=== PATIENT | female | born 1960 | race Caucasian/White ===

== ENCOUNTER 2022-02-18 15:31 | Inpatient (IN) | payer BC, MEDICAID ==
[2022-02-18] MEDS ORDERED: SODIUM CHLORIDE 0.9% 1,000 ML IV STA ×2 (16:25→20:42)
[2022-02-18] MEDS ORDERED: ACETAMINOPHEN TAB 500 MG TAB PO STA (16:25)
[2022-02-18] MEDS ORDERED: FAMOTIDINE 20 MG/2 ML VIAL IV STA (16:38)
--- NOTE | 2022-02-18 16:55 | ED ---
Abdominal Pain HPI - General Chief Complaint: Abdominal Pain Stated Complaint: near syncope Time Seen by Provider: 02/18/22 16:07 Source: patient, family, RN notes reviewed Mode of arrival: ambulatory Limitations: no limitations - History of Present Illness Initial Comments: This is a 61-year-old female who presents to the emergency department for abdomi nal pain. Patient states that over the last couple of weeks she has had these intermittent attacks of epigastric abdominal pain that occur with either left or right shoulder pain. She believes that she may have gallstones. She has a family history of gallstones in her mother and sister. When she was at her mother's house today she had another episode. She was curled up on the floor in pain and also felt very cold. Additionally, she had nausea and vomiting and felt like she may pass out. She currently feels better in terms of the pain and nausea/vomiting, however she does continue to feel cold and is visibly shivering in the room. She has never had an ultrasound of her gallbladder or otherwise been worked up for gallstones. Additionally, she reports a cough that began yesterday and has noticed a minor increase in shortness of breath with exertion over the last couple of weeks. Denies any fevers, sore throat, chest pain, palpitations, diarrhea, back pain, or headaches. MD Complaint: abdominal pain Onset/Timin -: week(s) Location: epigastric - Related Data Home Medications Medication Instructions Recorded Confirmed Acetaminophen/Diphenhydramine 1 tab PO HS PRN 02/18/22 02/18/22 [Tylenol PM 500-25mg] Multivitamins, Thera [Multivitamin 1 tab PO DAILY 02/18/22 02/18/22 (formulary)] Allergies Allergy/AdvReac Type Severity Reaction Status Date / Time No Known Allergies Allergy Verified 02/18/22 16:57 Review of Systems ROS Statement: Those systems with pertinent positive or pertinent negative responses have been documented in the HPI. ROS Other: All systems not noted in ROS Statement are negative. Past Medical History Past Medical History: No Reported History History of Any Multi-Drug Resistant Organisms: None Reported Past Surgical History: Tonsillectomy Past Psychological History: No Psychological Hx Reported Smoking Status: Never smoker Past Alcohol Use History: None Reported Past Drug Use History: None Reported General Exam Limitations: no limitations General appearance: alert, in no apparent distress Head exam: Present: atraumatic, normocephalic, normal inspection Respiratory exam: Present: normal lung sounds bilaterally. Absent: respiratory distress, wheezes, rales, rhonchi, stridor Cardiovascular Exam: Present: regular rate, normal rhythm, normal heart sounds. Absent: systolic murmur, diastolic murmur, rubs, gallop, clicks GI/Abdominal exam: Present: soft, tenderness (Epigastric), normal bowel sounds. Absent: distended, guarding, rebound, rigid Neurological exam: Present: alert, oriented X3, CN II-XII intact Psychiatric exam: Present: normal affect, normal mood Skin exam: Present: warm, dry, intact, normal color. Absent: rash Course Vital Signs 02/18/22 02/18/22 02/18/22 15:46 17:17 19:00 Temperature 99.0 F Pulse Rate 105 H 98 92 Respiratory 20 16 16 Rate Blood Pressure 140/87 129/91 106/65 O2 Sat by Pulse 100 98 97 Oximetry 02/18/22 19:04 Temperature 98.4 F Pulse Rate Respiratory Rate Blood Pressure O2 Sat by Pulse Oximetry Medical Decision Making - Medical Decision Making This is a 61-year-old female who presents to the emergency department for epigastric pain. Lab work revealed an elevated white blood cell count of 17.2. Ultrasound of the gallbladder obtained, revealing no evidence of gallbladder issues. Given the elevated white blood cell count a CT of the abdomen and pelvis as well as chest x-ray were obtained. This revealed a left lower lobe infiltrate and atelectasis with pleural effusion. She also has a small pericardial effusion. It is unclear if these have been the cause of all of the patient's symptoms over the last couple of weeks. Patient will be started on the pneumonia protocol with blood and sputum cultures. In the event her gallbladder is contributing to this, she will likely need a HIDA scan for further evaluation. Patient admitted for pneumonia and pericardial effusion. This case was discussed in detail with the attending ED physician. Presentation, findings, and treatment plan discussed in detail as well. - Lab Data Result diagrams: 02/18/22 16:56 02/18/22 16:56 Lab Results 02/18/22 02/18/22 02/18/22 Range/Units 16:56 16:56 16:56 WBC 17.2 H (3.8-10.6) k/uL RBC 3.61 L (3.80-5.40) m/uL Hgb 11.3 L (11.4-16.0) gm/dL Hct 34.6 (34.0-46.0) % MCV 96.0 (80.0-100.0) fL MCH 31.4 (25.0-35.0) pg MCHC 32.7 (31.0-37.0) g/dL RDW 11.3 L (11.5-15.5) % Plt Count 502 H (150-450) k/uL MPV 6.9 Neutrophils % 92 % Lymphocytes % 3 % Monocytes % 5 % Eosinophils % 0 % Basophils % 0 % Neutrophils # 15.7 H (1.3-7.7) k/uL Lymphocytes # 0.5 L (1.0-4.8) k/uL Monocytes # 0.8 (0-1.0) k/uL Eosinophils # 0.0 (0-0.7) k/uL Basophils # 0.1 (0-0.2) k/uL ESR (0-20) mm/hr Sodium 131 L (137-145) mmol/L Potassium 4.2 (3.5-5.1) mmol/L Chloride 95 L (98-107) mmol/L Carbon Dioxide 27 (22-30) mmol/L Anion Gap 9 mmol/L BUN 10 (7-17) mg/dL Creatinine 0.72 (0.52-1.04) mg/dL Est GFR (CKD-EPI)AfAm >90 (>60 ml/min/1.73 sqM) Est GFR (CKD-EPI)NonAf >90 (>60 ml/min/1.73 sqM) Glucose 135 H (74-99) mg/dL Calcium 8.5 (8.4-10.2) mg/dL Total Bilirubin 0.5 (0.2-1.3) mg/dL AST 33 (14-36) U/L ALT 55 H (4-34) U/L Alkaline Phosphatase 127 H (38-126) U/L Troponin I (0.000-0.034) ng/mL Total Protein 6.5 (6.3-8.2) g/dL Albumin 3.8 (3.5-5.0) g/dL Amylase 49 (30-110) U/L Lipase 72 (23-300) U/L Urine Color Light Yellow Urine Appearance Clear (Clear) Urine pH 6.0 (5.0-8.0) Ur Specific [place] 1.007 (1.001-1.035) Urine Protein Negative (Negative) Urine Glucose (UA) Negative (Negative) Urine Ketones Negative (Negative) Urine Blood Negative (Negative) Urine Nitrite Negative (Negative) Urine Bilirubin Negative (Negative) Urine Urobilinogen <2.0 (<2.0) mg/dL Ur Leukocyte Esterase Negative (Negative) Coronavirus (PCR) (Not Detectd) Influenza Type A RNA (Not Detectd) Influenza Type B (PCR) (Not Detectd) 02/18/22 02/18/22 02/18/22 Range/Units 16:56 16:56 16:56 WBC (3.8-10.6) k/uL RBC (3.80-5.40) m/uL Hgb (11.4-16.0) gm/dL Hct (34.0-46.0) % MCV (80.0-100.0) fL MCH (25.0-35.0) pg MCHC (31.0-37.0) g/dL RDW (11.5-15.5) % Plt Count (150-450) k/uL MPV Neutrophils % % Lymphocytes % % Monocytes % % Eosinophils % % Basophils % % Neutrophils # (1.3-7.7) k/uL Lymphocytes # (1.0-4.8) k/uL Monocytes # (0-1.0) k/uL Eosinophils # (0-0.7) k/uL Basophils # (0-0.2) k/uL ESR (0-20) mm/hr Sodium (137-145) mmol/L Potassium (3.5-5.1) mmol/L Chloride (98-107) mmol/L Carbon Dioxide (22-30) mmol/L Anion Gap mmol/L BUN (7-17) mg/dL Creatinine (0.52-1.04) mg/dL Est GFR (CKD-EPI)AfAm (>60 ml/min/1.73 sqM) Est GFR (CKD-EPI)NonAf (>60 ml/min/1.73 sqM) Glucose (74-99) mg/dL Calcium (8.4-10.2) mg/dL Total Bilirubin (0.2-1.3) mg/dL AST (14-36) U/L ALT (4-34) U/L Alkaline Phosphatase (38-126) U/L Troponin I <0.012 (0.000-0.034) ng/mL Total Protein (6.3-8.2) g/dL Albumin (3.5-5.0) g/dL Amylase (30-110) U/L Lipase (23-300) U/L Urine Color Urine Appearance (Clear) Urine pH (5.0-8.0) Ur Specific [place] (1.001-1.035) Urine Protein (Negative) Urine Glucose (UA) (Negative) Urine Ketones (Negative) Urine Blood (Negative) Urine Nitrite (Negative) Urine Bilirubin (Negative) Urine Urobilinogen (<2.0) mg/dL Ur Leukocyte Esterase (Negative) Coronavirus (PCR) Not Detected (Not Detectd) Influenza Type A RNA Not Detected (Not Detectd) Influenza Type B (PCR) Not Detected (Not Detectd) 02/18/22 Range/Units 22:21 WBC (3.8-10.6) k/uL RBC (3.80-5.40) m/uL Hgb (11.4-16.0) gm/dL Hct (34.0-46.0) % MCV (80.0-100.0) fL MCH (25.0-35.0) pg MCHC (31.0-37.0) g/dL RDW (11.5-15.5) % Plt Count (150-450) k/uL MPV Neutrophils % % Lymphocytes % % Monocytes % % Eosinophils % % Basophils % % Neutrophils # (1.3-7.7) k/uL Lymphocytes # (1.0-4.8) k/uL Monocytes # (0-1.0) k/uL Eosinophils # (0-0.7) k/uL Basophils # (0-0.2) k/uL ESR 104 H (0-20) mm/hr Sodium (137-145) mmol/L Potassium (3.5-5.1) mmol/L Chloride (98-107) mmol/L Carbon Dioxide (22-30) mmol/L Anion Gap mmol/L BUN (7-17) mg/dL Creatinine (0.52-1.04) mg/dL Est GFR (CKD-EPI)AfAm (>60 ml/min/1.73 sqM) Est GFR (CKD-EPI)NonAf (>60 ml/min/1.73 sqM) Glucose (74-99) mg/dL Calcium (8.4-10.2) mg/dL Total Bilirubin (0.2-1.3) mg/dL AST (14-36) U/L ALT (4-34) U/L Alkaline Phosphatase (38-126) U/L Troponin I (0.000-0.034) ng/mL Total Protein (6.3-8.2) g/dL Albumin (3.5-5.0) g/dL Amylase (30-110) U/L Lipase (23-300) U/L Urine Color Urine Appearance (Clear) Urine pH (5.0-8.0) Ur Specific [place] (1.001-1.035) Urine Protein (Negative) Urine Glucose (UA) (Negative) Urine Ketones (Negative) Urine Blood (Negative) Urine Nitrite (Negative) Urine Bilirubin (Negative) Urine Urobilinogen (<2.0) mg/dL Ur Leukocyte Esterase (Negative) Coronavirus (PCR) (Not Detectd) Influenza Type A RNA (Not Detectd) Influenza Type B (PCR) (Not Detectd) - EKG Data EKG Comments: Sinus tachycardia. Possible left atrial enlargement. Ventricular rate 104 bpm, HI interval 137 ms, QRS duration 96 ms, QTC 384 ms. - Radiology Data Radiology results: report reviewed, image reviewed Disposition Clinical Impression: Pneumonia, Pericardial effusion Disposition: ADMITTED IP TO THIS [facility] Referrals: None,Stated [Primary Care Provider] - 1-2 days
[2022-02-18 17:21] LABS: ALT 55 U/L (4-34); AST 33 U/L (14-36); African American GFR (CKD) >90 (>60 ml/min/1.73 sqM); Albumin 3.8 g/dL (3.5-5.0); Alkaline Phosphatase 127 U/L (38-126); Amylase 49 U/L (30-110); Anion Gap 9 mmol/L; Blood Urea Nitrogen 10 mg/dL (7-17); Calcium 8.5 mg/dL (8.4-10.2); Carbon Dioxide 27 mmol/L (22-30); Chloride 95 mmol/L (98-107); Glucose 135 mg/dL (74-99); Lipase 72 U/L (23-300); Non-African American GFR(CKD) >90 (>60 ml/min/1.73 sqM); Potassium 4.2 mmol/L (3.5-5.1); Sodium 131 mmol/L (137-145); Total Bilirubin 0.5 mg/dL (0.2-1.3); Total Protein 6.5 g/dL (6.3-8.2)
[2022-02-18 17:27] LABS: Basophils # (A) 0.1 k/uL (0-0.2); Basophils % (A) 0 %; Eosinophils % (A) 0 %; HCT 34.6 % (34.0-46.0); HGB 11.3 gm/dL (11.4-16.0); Lymphocytes # (A) 0.5 k/uL (1.0-4.8); Lymphocytes % (A) 3 %; MCH 31.4 pg (25.0-35.0); MCHC 32.7 g/dL (31.0-37.0); Mean Platelet Volume 6.9; Monocytes # (A) 0.8 k/uL (0-1.0); Monocytes % (A) 5 %; Neutrophils # (A) 15.7 k/uL (1.3-7.7); Neutrophils % (A) 92 %; Platelet Count 502 k/uL (150-450); RBC 3.61 m/uL (3.80-5.40); RDW 11.3 % (11.5-15.5); WBC 17.2 k/uL (3.8-10.6)
[2022-02-18 18:48] LABS: Appearance,Urine Clear (Clear); Bilirubin,Urine Negative (Negative); Blood,Urine Negative (Negative); Color,Urine Light Yellow; Glucose,Urine (UA) Negative (Negative); Ketones,Urine Negative (Negative); Leukocyte Esterase,Urine Negative (Negative); Nitrite,Urine Negative (Negative); Protein,Urine Negative (Negative); Specific Gravity,Urine 1.007 (1.001-1.035); Urobilinogen,Urine <2.0 mg/dL (<2.0)
--- NOTE | 2022-02-18 19:28 | US ---
EXAMINATION TYPE: US gallbladder DATE OF EXAM: 02/18/2022 COMPARISON: NONE CLINICAL HISTORY: Epigastric and RUQ pain. Pain EXAM MEASUREMENTS: Liver Length: 14.7 cm Gallbladder Wall: 0.18 cm CBD: 0.24 cm Right Kidney: 11.5 x 3.7 x 5.0 cm Pancreas: Appears wnl Liver: Multiple hyperechoic foci seen; largest seen in the right lobe measuring 2.7 x 2.2 x 2.4 cm Gallbladder: Appears wnl Evidence for sonographic Knight's sign: no CBD: wnl Right Kidney: No hydronephrosis or masses seen IMPRESSION: No gallstones or dilated ducts. Multiple sharply marginated liver lesions consistent with hemangiomas .
[2022-02-18] MEDS ORDERED: KETOROLAC 15 MG/ML 1 ML VIAL IVP STA (19:57)
--- NOTE | 2022-02-18 20:40 | XR ---
EXAMINATION TYPE: XR chest 2V DATE OF EXAM: 02/18/2022 COMPARISON: NONE HISTORY: Cough TECHNIQUE: 2 views FINDINGS: There is blunting left costophrenic angle. Heart size is normal. There are no hilar masses. Mediastinum is normal. There are chest leads. Bony thorax is intact. IMPRESSION: Left pleural effusion. Small right pleural effusion. No heart failure seen.
[2022-02-18] MEDS ORDERED: METOCLOPRAMIDE 5 MG/ML 2 ML VIAL IVP STA (20:42)
--- NOTE | 2022-02-18 20:49 | CT ---
EXAMINATION TYPE: CT abdomen pelvis w con DATE OF EXAM: 02/18/2022 COMPARISON: None HISTORY: epigastric pain CT DLP: 608.8 mGycm Automated exposure control for dose reduction was used. CONTRAST: Performed with IV Contrast, patient injected with 100ml mL of Isovue 300. There is small pericardial effusion. There is left pleural effusion with left lower lobe infiltrate a nd atelectasis. Gallbladder is intact. Spleen appears normal. There is no sign of pancreatic mass. The bile ducts ar e not dilated. There is oval-shaped 2.7 x 1.5 cm hypodensity in the right lobe of the liver with some nodular periph eral enhancement related to hemangioma. There is a second similar 2 x 1 cm focus in the lateral right lobe of the liver. There is no adrenal mass. Kidneys have normal size and contour. No hydronephrosis. Ureters are not di lated. There is no retroperitoneal adenopathy. Bladder distends smoothly. There is no inguinal hernia . No free fluid in the pelvis. No pelvic mass. Uterus appears anteverted. Cecum is low in the pelvis. Appendix not seen. No significant appendix. There is no mesenteric edema. No ascites or free air. No sign of a bowel obstruction. The lumbar vert ebrae have normal alignment. No compression fracture. Posterior elements are intact. Facet joints are intact. Hip joints are intact. IMPRESSION: Left lower lobe infiltrate and atelectasis with pleural effusion and pericardial effusion. No acute abnormality within the abdomen and pelvis. Hepatic hemangioma noted.
[2022-02-18] MEDS ORDERED: AZITHROMYCIN 500 MG in SODIUM CHLORIDE 0.9% 250 ML IVPB STA (21:46)
[2022-02-18] MEDS ORDERED: PNEUMONIA PROTOCOL UTILIZED 1 EACH MISC PO PRN (21:46)
[2022-02-18] MEDS ORDERED: ONDANSETRON 4 MG/2 ML VIAL IVP PRN (23:04)
[2022-02-18] MEDS ORDERED: NALOXONE 0.4 MG/ML 1 ML VIAL IV PRN (23:04)
[2022-02-18] MEDS ORDERED: oxyCODONE-APAP 5-325MG 1 EACH TAB PO PRN (23:04)
--- NOTE | 2022-02-19 02:41 | P.HPIM ---
History of Present Illness H&P Date: 02/19/22 The patient is a 61-year-old female with no known PMH who presents to the emergency room with complaints of abdominal pain and cough. Patient reports that over the past 1-1/2 weeks, she has experienced 2-3 episodes of sudden onset diaphoresis, abdominal discomfort, shaking chills, and eructation followed by a loose bowel movement. She reports that the episodes last for a few minutes at a time, without chest discomfort or shortness of breath. She also reports experiencing left shoulder discomfort occasionally over the past 2 weeks. Also reports persistent nonproductive cough over the past 1-2 weeks. She believed that she may have gallstones as multiple family members of hers have had their gallbladders removed. Denies ever being worked up for gallstones and has not seen a physician in over a decade. Reports that her most recent episode was earlier today which prompted her to come to the emergency room. Gallbladder ultrasound in the emergency room was unremarkable except multiple liver hemangiomas. Chest x-ray revealed left-sided pleural effusion with small right pleural effusion. CT abdomen and pelvis revealed left lower lobe infiltrate and atelectasis with pleural effusion and a small pericardial effusion. EKG was sinus tachycardia at 104 bpm with T-wave flattening in inferior leads as well as poor R-wave progression. Laboratory evaluation revealed leukocytosis of 17.2, hemoglobin 11.3, platelets 502, ESR 104, lactic acid 0.9, troponin less than 0.012, and CRP 13.1. Review of systems: Pertinent positives and negatives as discussed in HPI, a complete review of s ystems was performed and all other systems are negative. Physical examination: General: non toxic, no distress, appears at stated age, normal weight Derm: no unusual rashes/lesions, warm Head: atraumatic, normocephalic, symmetric Eyes: EOMI, no lid lag, anicteric sclera, pupils equal round reactive to light ENT: Nose and ears atraumatic Neck: No cervical lymphadenopathy, trachea midline, supple Mouth: no lip lesion, mucus membranes moist Cardiovascular: S1S2 reg, no murmur, positive dorsalis pedis pulse bilateral, no edema Lungs: CTA bilateral, no rhonchi, no rales, no accessory muscle use Abdominal: soft, nontender to palpation, no guarding Ext: muscle strength 5 out of 5 in all 4 extremities grossly, no gross muscle atrophy, no contractures, Neuro: CN II-XI grossly intact, no gross focal neuro deficits Psych: Alert, oriented, appropriate affect Assessment/plan Sepsis suspected secondary to community acquired pneumonia -Continue with azithromycin and ceftriaxone -IV fluids -Follow-up pro-calcitonin levels -Follow up blood and sputum cultures DVT prophylaxis -Heparin subq The patient is admitted with an anticipated greater than 2 midnight stay for evaluation of sepsis CODE STATUS: Full Code Discussed with: Patient Anticipated discharge date: 02/[address]: Home Past Medical History Past Medical History: No Reported History History of Any Multi-Drug Resistant Organisms: None Reported Past Surgical History: Tonsillectomy Past Anesthesia/Blood Transfusion Reactions: No Reported Reaction Past Psychological History: No Psychological Hx Reported Smoking Status: Never smoker Past Alcohol Use History: None Reported Past Drug Use History: None Reported - Past Family History Mother Family Medical History: Hypertension Medications and Allergies Home Medications Medication Instructions Recorded Confirmed Type Acetaminophen/Diphenhydramine 1 tab PO HS PRN 02/18/22 02/18/22 History [Tylenol PM 500-25mg] Multivitamins, Thera [Multivitamin 1 tab PO DAILY 02/18/22 02/18/22 History (formulary)] Allergies Allergy/AdvReac Type Severity Reaction Status Date / Time No Known Allergies Allergy Verified 02/18/22 16:57 Physical Exam Vitals: Vital Signs Temp Pulse Pulse Resp BP BP Pulse Ox 02/19/22 00:30 98.4 F 89 16 100/65 100 02/19/22 00:00 86 16 96/64 97 02/18/22 23:26 98.4 F 89 16 100/65 100 02/18/22 21:46 100 02/18/22 19:04 98.4 F 02/18/22 19:00 92 16 106/65 97 02/18/22 17:17 98 16 129/91 98 02/18/22 15:46 99.0 F 105 H 20 140/87 100 Intake and Output 02/18/22 02/18/22 02/19/22 14:59 22:59 06:59 Other: Weight 56.699 kg 56.699 kg Results CBC & Chem 7: 02/18/22 16:56 02/18/22 16:56 Labs: Abnormal Lab Results - Last 24 Hours (Table) 06/05/0402/18/22 02/18/22 Range/Units 16:56 16:56 21:48 WBC 17.2 H (3.8-10.6) k/uL RBC 3.61 L (3.80-5.40) m/uL Hgb 11.3 L (11.4-16.0) gm/dL RDW 11.3 L (11.5-15.5) % Plt Count 502 H (150-450) k/uL Neutrophils # 15.7 H (1.3-7.7) k/uL Lymphocytes # 0.5 L (1.0-4.8) k/uL ESR (0-20) mm/hr Sodium 131 L (137-145) mmol/L Chloride 95 L (98-107) mmol/L Glucose 135 H (74-99) mg/dL ALT 55 H (4-34) U/L Alkaline Phosphatase 127 H (38-126) U/L C-Reactive Protein 13.1 H (<1.0) mg/dL 02/18/22 Range/Units 22:21 WBC (3.8-10.6) k/uL RBC (3.80-5.40) m/uL Hgb (11.4-16.0) gm/dL RDW (11.5-15.5) % Plt Count (150-450) k/uL Neutrophils # (1.3-7.7) k/uL Lymphocytes # (1.0-4.8) k/uL ESR 104 H (0-20) mm/hr Sodium (137-145) mmol/L Chloride (98-107) mmol/L Glucose (74-99) mg/dL ALT (4-34) U/L Alkaline Phosphatase (38-126) U/L C-Reactive Protein (<1.0) mg/dL Thrombosis Risk Factor Assmnt - Choose All That Apply Any of the Below Risk Factors Present?: No
[2022-02-19] MEDS: SODIUM CHLORIDE 0.9% 1,000 ML IV SCH ×2 (02:55→19:51)
[2022-02-19 06:57] LABS: Basophils # (A) 0.1 k/uL (0-0.2); Basophils % (A) 0 %; Eosinophils # (A) 0.1 k/uL (0-0.7); Eosinophils % (A) 1 %; HCT 32.5 % (34.0-46.0); HGB 10.4 gm/dL (11.4-16.0); Lymphocytes # (A) 1.3 k/uL (1.0-4.8); Lymphocytes % (A) 11 %; MCH 31.1 pg (25.0-35.0); MCHC 31.9 g/dL (31.0-37.0); MCV 97.6 fL (80.0-100.0); Mean Platelet Volume 6.9; Monocytes # (A) 0.8 k/uL (0-1.0); Monocytes % (A) 6 %; Neutrophils # (A) 9.6 k/uL (1.3-7.7); Neutrophils % (A) 80 %; Platelet Count 456 k/uL (150-450); RBC 3.33 m/uL (3.80-5.40); RDW 11.4 % (11.5-15.5)
[2022-02-19 07:14] LABS: ALT 46 U/L (4-34); AST 27 U/L (14-36); African American GFR (CKD) >90 (>60 ml/min/1.73 sqM); Albumin 3.3 g/dL (3.5-5.0); Alkaline Phosphatase 116 U/L (38-126); Anion Gap 7 mmol/L; Blood Urea Nitrogen 6 mg/dL (7-17); Calcium 8.3 mg/dL (8.4-10.2); Carbon Dioxide 25 mmol/L (22-30); Chloride 103 mmol/L (98-107); Glucose 108 mg/dL (74-99); Non-African American GFR(CKD) >90 (>60 ml/min/1.73 sqM); Sodium 135 mmol/L (137-145); Total Bilirubin 0.4 mg/dL (0.2-1.3)
[2022-02-19] MEDS: HEPARIN SODIUM,PORCINE/PF 5,000 UNIT/0.5 ML SYRINGE SQ SCH ×3 (07:18→23:46)
[2022-02-19] MEDS: ACETAMINOPHEN TAB 325 MG TAB PO PRN ×2 (10:52→19:47)
[2022-02-19] MEDS: BENZOCAINE/MENTHOL LOZENG 1 EACH LOZENGE MUCOUS MEM PRN ×2 (15:40→20:38)
[2022-02-19] MEDS: AZITHROMYCIN 500 MG in SODIUM CHLORIDE 0.9% 250 ML IVPB SCH (20:39)
[2022-02-20] MEDS: ACETAMINOPHEN TAB 325 MG TAB PO PRN ×2 (02:12→08:25)
[2022-02-20] MEDS: BENZOCAINE/MENTHOL LOZENG 1 EACH LOZENGE MUCOUS MEM PRN ×2 (02:16→08:25)
[2022-02-20] MEDS: SODIUM CHLORIDE 0.9% 1,000 ML IV SCH ×3 (02:49→21:13)
[2022-02-20] MEDS: HEPARIN SODIUM,PORCINE/PF 5,000 UNIT/0.5 ML SYRINGE SQ SCH ×3 (07:36→23:44)
--- NOTE | 2022-02-20 13:55 | P.CNPUL ---
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 The patient was having also some abdominal discomfort, shaking chills, loose bowel movements and she end up coming into the hospital for further care. The chest x-ray showed a left lower lobe consolidation and small left-sided pleural effusion. CAT scan of the abdomen and pelvis was also done that showed left lower lobe atelectasis/infiltrate with a pleural effusion and small pericardial effusion. Based on that, the patient was diagnosed having a community-acquired pneumonia. The patient was hospitalized and currently the patient on IV antibiotics. The sedimentation rate is at 104. CRP is at 13.1. COVID 19 testing was negative. Influenza screen was negative. The patient was started on a combination of Rocephin and Zithromax. The lactic acid level was at 0.9. Troponin was at 0.01 and a CRP level was at 13. The patient was sent, was at 17.2 with a hemoglobin of 11.3. No previous episodes of pneumonias. No lung history in terms of lung disease. No chronic illnesses. No aspiration. No trauma to the chest. No DVTs or pulmonary embolism. Review of Systems Constitutional: Reports fatigue, Reports sweats Eyes: denies as per HPI, denies blurred vision, denies bulging eye, denies decreased vision, denies diplopia, denies discharge, denies dry eye, denies irritation, denies itching, denies pain, denies photophobia, denies loss of peripheral vision, denies loss of vision, denies tunnel vision/blind spots Ears: deny: decreased hearing, ear discharge, earache, tinnitus Ears, nose, mouth and throat: Reports as per HPI Breasts: absent: as per HPI, change in shape, gynecomastia, masses, nipple discharge, pain, skin changes, swelling Cardiovascular: Reports decreased exercise tolerance, Reports dyspnea on exertion Respiratory: Reports cough Gastrointestinal: Reports diarrhea, Reports loss of appetite Genitourinary: Reports as per HPI Menstruation: Reports as per HPI Musculoskeletal: Reports as per HPI Musculoskeletal: absent: ankle pain, ankle stiffness, ankle swelling Integumentary: Reports as per HPI Neurological: Reports as per HPI Endocrine: Reports as per HPI Hematologic/Lymphatic: Reports as per HPI Allergic/Immunologic: Reports as per HPI Past Medical History Past Medical History: No Reported History History of Any Multi-Drug Resistant Organisms: None Reported Past Surgical History: Tonsillectomy Past Anesthesia/Blood Transfusion Reactions: No Reported Reaction Past Psychological History: No Psychological Hx Reported Smoking Status: Never smoker Past Alcohol Use History: None Reported Past Drug Use History: None Reported - Past Family History Mother Family Medical History: Hypertension Medications and Allergies Home Medications Medication Instructions Recorded Confirmed Type Acetaminophen/Diphenhydramine 1 tab PO HS PRN 02/18/22 02/18/22 History [Tylenol PM 500-25mg] Multivitamins, Thera [Multivitamin 1 tab PO DAILY 02/18/22 02/18/22 History (formulary)] Allergies Allergy/AdvReac Type Severity Reaction Status Date / Time No Known Allergies Allergy Verified 02/18/22 16:57 Physical Exam Vitals: Vital Signs Temp Pulse Resp BP Pulse Ox 02/20/22 08:40 19 02/20/22 08:00 99.0 F 89 16 101/61 97 02/20/22 02:24 99.6 F 91 19 100/58 95 02/20/22 00:17 97 02/19/22 21:10 99.4 F 02/19/22 19:52 101.6 F H 100 20 113/78 97 02/19/22 15:08 98.4 F 87 17 109/68 98 Intake and Output 02/19/22 02/20/22 02/20/22 22:59 06:59 14:59 Intake Total 240 Output Total 3 Balance 237 Intake: Oral 240 Output: Urine 3 Other: Voiding Method Toilet General: non toxic, no distress, appears at stated age, normal weight , currently on room air oxygen. Quite nervous due to her underlyying pneumonia. Derm: no unusual rashes/lesions, warm Head: atraumatic, normocephalic, symmetric Eyes: EOMI, no lid lag, anicteric sclera, pupils equal round reactive to light ENT: Nose and ears atraumatic Neck: No cervical lymphadenopathy, trachea midline, supple Mouth: no lip lesion, mucus membranes moist Cardiovascular: S1S2 reg, no murmur, positive dorsalis pedis pulse bilateral, no edema Lungs the patient has diminished breath on the left lung base along with some dullness to percussion and some limited track of the left lung area. Abdominal: soft, nontender to palpation, no guarding Ext: muscle strength 5 out of 5 in all 4 extremities grossly, no gross muscle at rophy, no contractures, Neuro: CN II-XI grossly intact, no gross focal neuro deficits Psych: Alert, oriented, appropriate affect Results - Laboratory Findings CBC and BMP: 02/19/22 03:59 02/19/22 03:50 Abnormal lab findings: Abnormal Labs 02/18/22 02/18/22 02/18/22 16:56 16:56 21:48 WBC 17.2 H RBC 3.61 L Hgb 11.3 L Hct RDW 11.3 L Plt Count 502 H Neutrophils # 15.7 H Lymphocytes # 0.5 L ESR Sodium 131 L Chloride 95 L BUN Glucose 135 H Calcium ALT 55 H Alkaline Phosphatase 127 H C-Reactive Protein 13.1 H Total Protein Albumin Procalcitonin 02/18/22 02/19/22 02/19/22 22:21 03:50 03:50 WBC RBC Hgb Hct RDW Plt Count Neutrophils # Lymphocytes # ESR 104 H Sodium 135 L Chloride BUN 6 L Glucose 108 H Calcium 8.3 L ALT 46 H Alkaline Phosphatase C-Reactive Protein Total Protein 6.0 L Albumin 3.3 L Procalcitonin 0.20 H 02/19/22 03:59 WBC 12.0 H RBC 3.33 L Hgb 10.4 L Hct 32.5 L RDW 11.4 L Plt Count 456 H Neutrophils # 9.6 H Lymphocytes # ESR Sodium Chloride BUN Glucose Calcium ALT Alkaline Phosphatase C-Reactive Protein Total Protein Albumin Procalcitonin - Diagnostic Findings Chest x-ray: image reviewed Assessment and Plan Plan: community-acquired left lower lobe pneumonia with a small parapneumonic effusion dyspnea cough secondary to above Pleuritic left-sided chest pain secondary to above extrapulmonary manifestation of pneumonia including diarrhea , improved Mild leukocytosis Plan Fully agree on the current treatment plan. continue Rocephin and Zithromax for now. Repeat chesst x-ray in the morning Obtain sputum and blood cultures if possible For calcitonin level is mildly elevated Repeat chest x-ray with next 24 hours and evaluate for development of any left- sided pleural effusion /parapneumonic. There is somme parapneumonic pleural effusion at this point in time. The amount is small and is not amenable for thoracentesis [place] for pain control Robitussin-DM for cough and congestion We'll continue to follow.
[2022-02-20 14:17] LABS: Basophils # (A) 0.1 k/uL (0-0.2); Basophils % (A) 0 %; Eosinophils # (A) 0.3 k/uL (0-0.7); Eosinophils % (A) 2 %; HCT 36.1 % (34.0-46.0); HGB 11.4 gm/dL (11.4-16.0); Lymphocytes # (A) 1.5 k/uL (1.0-4.8); Lymphocytes % (A) 9 %; MCH 31.1 pg (25.0-35.0); MCHC 31.6 g/dL (31.0-37.0); MCV 98.5 fL (80.0-100.0); Mean Platelet Volume 7.2; Monocytes # (A) 0.5 k/uL (0-1.0); Monocytes % (A) 3 %; Neutrophils # (A) 13.9 k/uL (1.3-7.7); Neutrophils % (A) 85 %; Platelet Count 508 k/uL (150-450); RBC 3.67 m/uL (3.80-5.40); RDW 11.5 % (11.5-15.5); WBC 16.4 k/uL (3.8-10.6)
[2022-02-20] MEDS: guaiFENesin-Coden 100-10MG/5ML 10 ML CUP PO PRN ×2 (14:21→21:22)
[2022-02-20] MEDS: HYDROcodone/APAP 5-325MG 1 EACH TAB PO PRN ×2 (14:21→21:22)
--- NOTE | 2022-02-20 14:24 | P.PN ---
Subjective Progress Note Date: 02/20/22 Patient has persistent cough, left-sided pleuritic chest pain. She had trouble sleeping last night due to cough, feels run down and weak today. Ongoing IV antibiotic therapy with ceftriaxone/azithromycin. Pulmonary consult today, appreciate recommendations. Patient will be monitored with repeat chest x-ray tomorrow to determine ongoing plan. Daily labs. Gen: awake, alert HEENT: normocephalic, atraumatic, good hearing acuity, moist mucous membranes Resp: good air exchange, breathing comfortably with no accessory muscle use, diminished breath sounds in the left base, otherwise clear CVS: good distal perfusion x 4, regular rate and rhythm, no murmurs GI: soft, NTTP, ND : no SPT, no CVAT, cobb catheter not present MSK: no pitting edema, no clubbing Neuro: non-focal, moving all extremities Psych: cooperative, euthymic mood Assessment/plan: Sepsis suspected secondary to community acquired pneumonia -Continue with azithromycin and ceftriaxone -IV fluids -Follow-up pro-calcitonin levels -Follow up blood and sputum cultures -Pulmonology consult, appreciate recommendations -Guaifenesin/codeine every 6 hours when necessary for cough -Repeat chest x-ray in the morning DVT prophylaxis -Heparin subq The patient is admitted with an anticipated greater than 2 midnight stay for evaluation of sepsis CODE STATUS: Full Code Discussed with: Patient Anticipated discharge date: 02/[address]: Home Objective - Vital Signs Vital signs: Vital Signs Temp 99.0 F 02/20/22 08:00 Pulse 89 02/20/22 08:00 Resp 19 02/20/22 08:40 BP 101/61 02/20/22 08:00 Pulse Ox 97 02/20/22 08:00 FiO2 Intake & Output 02/19/22 02/20/22 02/20/22 18:59 06:59 18:59 Intake Total 240 Output Total 3 Balance -3 240 Intake: Oral 240 Output: Urine 3 Other: Voiding Method Toilet - Labs CBC & Chem 7: 02/20/22 13:59 02/19/22 03:50 Labs: Abnormal Lab Results - Last 24 Hours (Table) 02/20/22 Range/Units 13:59 WBC 16.4 H (3.8-10.6) k/uL RBC 3.67 L (3.80-5.40) m/uL Plt Count 508 H (150-450) k/uL Neutrophils # 13.9 H (1.3-7.7) k/uL Microbiology - Last 24 Hours (Table) 02/19/22 04:37 Blood Culture - Preliminary Blood No Growth after 24 hours 02/19/22 03:50 Blood Culture - Preliminary Blood No Growth after 24 hours
[2022-02-20 14:34] LABS: African American GFR (CKD) >90 (>60 ml/min/1.73 sqM); Anion Gap 10 mmol/L; Blood Urea Nitrogen 8 mg/dL (7-17); Calcium 8.4 mg/dL (8.4-10.2); Carbon Dioxide 23 mmol/L (22-30); Chloride 102 mmol/L (98-107); Glucose 198 mg/dL (74-99); Magnesium 2.2 mg/dL (1.6-2.3); Non-African American GFR(CKD) >90 (>60 ml/min/1.73 sqM); Potassium 3.9 mmol/L (3.5-5.1); Sodium 135 mmol/L (137-145)
[2022-02-20 18:28] LABS: Glucose,Whole Blood 178 mg/dL (75-99)
--- NOTE | 2022-02-20 19:14 | XR ---
EXAMINATION TYPE: XR chest 1V portable DATE OF EXAM: 02/20/2022 COMPARISON: 02/18/2022 HISTORY: Short of breath TECHNIQUE: FINDINGS: There is blunting of the costophrenic angles and more on the left side. There is infiltrate left lung base. No definite heart failure. There are chest leads. Bony thorax is intact. IMPRESSION: There is increasing pleural effusion compared to recent exam. There is increasing infiltr ate left lower lobe compared to recent exam.
[2022-02-20] MEDS: AZITHROMYCIN 500 MG in SODIUM CHLORIDE 0.9% 250 ML IVPB SCH (22:18)
[2022-02-21] MEDS: SODIUM CHLORIDE 0.9% 1,000 ML IV SCH ×3 (01:27→17:49)
[2022-02-21] MEDS: ACETAMINOPHEN TAB 325 MG TAB PO PRN (06:03)
[2022-02-21] MEDS: guaiFENesin-Coden 100-10MG/5ML 10 ML CUP PO PRN (06:04)
--- NOTE | 2022-02-21 07:01 | XR ---
EXAMINATION TYPE: XR chest 2V DATE OF EXAM: 02/21/2022 COMPARISON: 02/20/2022 HISTORY: Shortness of breath TECHNIQUE: Frontal and lateral views of the chest are obtained. FINDINGS: There is a dense opacity obscuring the left hemidiaphragm consistent with a moderate left pleural effusion and possibly interstitial lung infiltrate or atelectasis. There is a small right pleural effusion which has increased slightly in the interval. There is no pneumothorax. The osseous structures are intact IMPRESSION: 1. Bilateral pleural effusions, left much larger than right. 2. Right effusion increasing compared to prior study. Left effusion essentially unchanged.
[2022-02-21] MEDS: HEPARIN SODIUM,PORCINE/PF 5,000 UNIT/0.5 ML SYRINGE SQ SCH ×3 (08:48→23:46)
[2022-02-21 08:50] LABS: Basophils # (A) 0.04 X 10*3/uL (0.00-0.10); Basophils % (A) 0.3 %; Eosinophils # (A) 0.07 X 10*3/uL (0.04-0.35); Eosinophils % (A) 0.5 %; HCT 30.6 % (37.2-46.3); HGB 9.5 g/dL (12.0-15.0); Immature Grans, Automated 0.5 %; Lymphocytes # (A) 1.74 X 10*3/uL (0.90-5.00); Lymphocytes % (A) 11.6 %; MCH 30.4 pg (27.0-32.0); MCV 98.1 fL (80.0-97.0); Mean Platelet Volume 9.8 fL (9.5-12.2); Monocytes # (A) 1.17 X 10*3/uL (0.20-1.00); Monocytes % (A) 7.8 %; NRBC Per 100 WBC 0 /100 WBCS (0.0-0.0); Neutrophils # (A) 11.84 X 10*3/uL (1.80-7.70); Neutrophils % (A) 79.3 %; Platelet Count 499 X 10*3/uL (140-440); RBC 3.12 X 10*6/uL (4.10-5.20); RDW 12.2 % (11.5-14.5); WBC 14.94 X 10*3/uL (4.50-10.00)
[2022-02-21 09:57] LABS: African American GFR (CKD) 106.9 (60.0-200.0); BUN/Creat Ratio 12.43 Ratio (12.00-20.00); Blood Urea Nitrogen 8.7 mg/dL (9.0-27.0); Calcium 8.6 mg/dL (8.7-10.3); Magnesium 2.1 mg/dL (1.5-2.4); Non-African American GFR(CKD) 92.2 (60.0-200.0)
--- NOTE | 2022-02-21 10:30 | P.PN ---
Subjective Progress Note Date: 02/21/22 Patient had an episode of hypotension yesterday, spontaneously resolved. Patient continues to have cough, however, this is improved with codeine syrup. Chest x-ray today shows increased right-sided pleural effusion. White blood cell count is decreased. Ongoing therapy with ceftriaxone/azithromycin. Echo, BNP pending Gen: awake, alert HEENT: normocephalic, atraumatic, good hearing acuity, moist mucous membranes Resp: good air exchange, breathing comfortably with no accessory muscle use, diminished breath sounds in the left base, otherwise clear CVS: good distal perfusion x 4, regular rate and rhythm, no murmurs GI: soft, NTTP, ND : no SPT, no CVAT, cobb catheter not present MSK: no pitting edema, no clubbing Neuro: non-focal, moving all extremities Psych: cooperative, euthymic mood Assessment/plan: Sepsis suspected secondary to community acquired pneumonia Bilateral Pleural Effusions, likely parapneumonic -Continue with azithromycin and ceftriaxone -IV fluids -Follow-up pro-calcitonin levels -Follow up blood and sputum cultures -Pulmonology consult, appreciate recommendations -Guaifenesin/codeine every 6 hours when necessary for cough -Repeat chest x-ray in the morning -Echo pending -BNP pending -Legionella pending DVT prophylaxis -Heparin subq The patient is admitted with an anticipated greater than 2 midnight stay for e valuation of sepsis CODE STATUS: Full Code Discussed with: Patient Anticipated discharge date: 02/[address]: Home Objective - Vital Signs Vital signs: Vital Signs Temp 98.7 F 02/21/22 07:47 Pulse 79 02/21/22 07:47 Resp 14 02/21/22 01:02 BP 97/64 02/21/22 07:47 Pulse Ox 94 L 02/21/22 07:47 FiO2 Intake & Output 02/20/22 02/21/22 02/21/22 18:59 06:59 18:59 Other: Voiding Method Toilet Toilet # Voids 3 1 - Labs CBC & Chem 7: 02/21/22 05:30 02/21/22 05:30 Labs: Abnormal Lab Results - Last 24 Hours (Table) 02/20/22 02/20/22 02/20/22 Range/Units 13:59 13:59 18:08 WBC 16.4 H (3.8-10.6) k/uL RBC 3.67 L (3.80-5.40) m/uL Hgb (12.0-15.0) g/dL Hct (37.2-46.3) % MCV (80.0-97.0) fL MCHC (32.0-37.0) g/dL Plt Count 508 H (150-450) k/uL Immature Gran # (0.00-0.04) X 10*3/uL Neutrophils # 13.9 H (1.3-7.7) k/uL Monocytes # (0.20-1.00) X 10*3/uL Sodium 135 L (137-145) mmol/L BUN (9.0-27.0) mg/dL Glucose 198 H (74-99) mg/dL POC Glucose (mg/dL) 178 H (75-99) mg/dL Calcium (8.7-10.3) mg/dL 02/21/22 02/21/22 Range/Units 05:30 05:30 WBC 14.94 H (3.8-10.6) k/uL RBC 3.12 L (3.80-5.40) m/uL Hgb 9.5 L (12.0-15.0) g/dL Hct 30.6 L (37.2-46.3) % MCV 98.1 H (80.0-97.0) fL MCHC 31.0 L (32.0-37.0) g/dL Plt Count 499 H (150-450) k/uL Immature Gran # 0.08 H (0.00-0.04) X 10*3/uL Neutrophils # 11.84 H (1.3-7.7) k/uL Monocytes # 1.17 H (0.20-1.00) X 10*3/uL Sodium (137-145) mmol/L BUN 8.7 L (9.0-27.0) mg/dL Glucose (74-99) mg/dL POC Glucose (mg/dL) (75-99) mg/dL Calcium 8.6 L (8.7-10.3) mg/dL Microbiology - Last 24 Hours (Table) 02/19/22 04:37 Blood Culture - Preliminary Blood No Growth after 48 hours 02/19/22 03:50 Blood Culture - Preliminary Blood No Growth after 48 hours
--- NOTE | 2022-02-21 11:01 | CA ---
Transthoracic Echo Report Name: Estefany Graham Age: 61 Gender: F : 1960 Exam Date: 02/21/2022 08:30 Exam Location: [facility] Ht (in): 64 Wt (lb): 125 Ordering Physician: Venita William MD Attending/Referring Phys: [employer] Supervisor Kya Vance RDCS Procedure CPT: Indications: B/L Pleural Effusions Cardiac Hx: Technical Quality: Good Contrast 1: Total Dose (mL): Contrast 2: Total Dose (mL): MEASUREMENTS (Male / Female) Normal Values 2D ECHO LV Diastolic Diameter PLAX 3.9 cm 4.2 - 5.9 / 3.9 - 5.3 cm LV Systolic Diameter PLAX 2.4 cm IVS Diastolic Thickness 1.0 cm 0.6 - 1.0 / 0.6 - 0.9 cm LVPW Diastolic Thickness 1.0 cm 0.6 - 1.0 / 0.6 - 0.9 cm LV Relative Wall Thickness 0.5 RV Internal Dim ED PLAX 2.6 cm LA Systolic Diameter LX 3.1 cm 3.0 - 4.0 / 2.7 - 3.8 cm LA Volume 32.4 cm??? 18 - 58 / 22 - 52 cm??? M-MODE Aortic Root Diameter MM 2.5 cm MV E Point Septal Separation 0.4 cm AV Cusp Separation MM 2.1 cm DOPPLER AV Peak Velocity 144.8 cm/s AV Peak Gradient 8.4 mmHg MV Area PHT 2.9 cm??? Mitral E Point Velocity 92.3 cm/s Mitral A Point Velocity 65.9 cm/s Mitral E to A Ratio 1.4 MV Deceleration Time 263.3 ms MV E' Velocity 13.6 cm/s Mitral E to MV E' Ratio 6.8 TR Peak Velocity 235.4 cm/s TR Peak Gradient 22.2 mmHg Right Ventricular Systolic Press 37.2 mmHg FINDINGS Left Ventricle Normal left ventricular size, wall thickness, systolic function with no obvious regional wall motion abnormalities. Normal left ventricular diastolic filling pattern for age. The ejection fraction is visually estimated at 60-65 %. Right Ventricle The right ventricle is normal in size and function. Mild pulmonary hypertension. Right Atrium The right atrium is normal in size. Left Atrium The left atrium is normal in size. No evidence for an atrial septal defect. Mitral Valve Structurally normal mitral valve without significant stenosis or prolapse. Trace to mild mitral regurgitation. Aortic Valve Structurally normal aortic valve without significant sclerosis or stenosis. There is no aortic regurgitation. Tricuspid Valve Structurally normal tricuspid valve without significant stenosis. Pulmonary artery systolic pressure is normal. Pulmonic Valve Structurally normal pulmonic valve without significant stenosis. Mild pulmonic regurgitation. Pericardium Normal pericardium without effusion. Aorta Normal aortic root dimension. CONCLUSIONS Normal LV systolic function No significant valvular abnormality Previewed by: Dr. Wes Danielle MD (Electronically Signed) Final Date: 21 February 2022 11:00
--- NOTE | 2022-02-21 11:51 | US ---
EXAMINATION TYPE: US carotid duplex BILAT DATE OF EXAM: 02/21/2022 COMPARISON: NONE CLINICAL HISTORY: syncope. syncope x 2 weeks EXAM MEASUREMENTS: RIGHT: Peak Systolic Velocity (PSV) cm/sec ----- Right CCA: 85.7 ----- Right ICA: 112.9 ----- Right ECA: 111.3 ICA/CCA ratio: 1.3 RIGHT: End Diastole cm/sec ----- Right CCA: 33.3 ----- Right ICA: 51.5 ----- Right ECA: 32.1 LEFT: Peak Systolic Velocity (PSV) cm/sec ----- Left CCA: 109.7 ----- Left ICA: 112.9 ----- Left ECA: 112.9 ICA/CCA ratio: 1.1 LEFT: End Diastole cm/sec ----- Left CCA: 40.2 ----- Left ICA: 43.4 ----- Left ECA: 32.1 VERTEBRALS (direction of flow): Right Vertebral: Antegrade Left Vertebral: Antegrade Rhythm: Normal IMPRESSION: No significant stenoses of the common or internal carotid arteries bilaterally. Criteria for Assigning % of Stenosis / Diameter reduction (Estimation based on the indirect measurements of the internal carotid artery velocities (ICA PSV). 1. Normal (no stenosis)=ICA PSV < 125 cm/s: ratio < 2.0: ICA EDV<40 cm/s. 2. Less than 50% stenosis=ICA PSV < 125 cm/s: ratio < 2.0: ICA EDV<40 cm/s. 3. 50 to 69% stenosis=ICA PSV of 125 to 230 cm/s: ration 2.0 ? 4.0: ICA EDV 40-100 cm/s. 4. Greater than 70% stenosis to near occlusion= ICA PSV > 230 cm/s: ratio > 4.0: ICA EDV > 100 cm/s. 5. Near occlusion= ICA PSV velocities may be low or undetectable: variable ratio and ICA EDV. 6. Total occlusion=unable to detect flow.
[2022-02-21] MEDS: HYDROcodone/APAP 5-325MG 1 EACH TAB PO PRN ×3 (12:08→22:09)
--- NOTE | 2022-02-21 12:25 | P.PN ---
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 The patient was having also some abdominal discomfort, shaking chills, loose bowel movements and she end up coming into the hospital for further care. The chest x-ray showed a left lower lobe consolidation and small left-sided pleural effusion. CAT scan of the abdomen and pelvis was also done that showed left lower lobe atelectasis/infiltrate with a pleural effusion and small pericardial effusion. Based on that, the patient was diagnosed having a community-acquired pneumonia. The patient was hospitalized and currently the patient on IV antibiotics. The sedimentation rate is at 104. CRP is at 13.1. COVID 19 testing was negative. Influenza screen was negative. The patient was started on a combination of Rocephin and Zithromax. The lactic acid level was at 0.9. Troponin was at 0.01 and a CRP level was at 13. The patient was sent, was at 17.2 with a hemoglobin of 11.3. No previous episodes of pneumonias. No lung history in terms of lung disease. No chronic illnesses. No aspiration. No trauma to the chest. No DVTs or pulmonary embolism. On 02/21/2022 the patient is being seen for a follow-up. The patient is quite nervous and anxious. She is still on room air oxygen. He still having pleuritic chest pain on the left and she is using incentive spirometer. Yesterday she had an event and her blood pressure dropped down to 60/47. This occurred approximately 6 PM yesterday. She immediately recovered and her blood pressure is still actively soft. No significant tachycardia. Most recent blood pressures 107/68.. The patient's oral intake is quite diminished. She is afebrile. Her white cell count is at 14.9 with hemoglobin of 0.5 and the rest of the electrolytes are all within normal limits. The blood cultures of been negative thus far. A repeat in the follow-up chest x-ray was done this morning and a patient has developed a left-sided pleural effusion and a very tiny right- sided pleural effusion. The left-sided pleural effusion is currently moderate in size and there is some residual inflammatory changes and left lung base. Despite all this, the patient does not look toxic at all. Her breathing is not labored. No altered mentation. She is producing adequate amount of urine output. Echocardiogram was obtained and it showed normal findings. Carotid Dopplers were also negative. A CT of the chest and a pulmonary CT angiogram was ordered. Objective - Vital Signs Vital signs: Vital Signs Temp 98.7 F 02/21/22 07:47 Pulse 79 02/21/22 07:47 Resp 14 02/21/22 01:02 BP 97/64 02/21/22 07:47 Pulse Ox 94 L 02/21/22 07:47 FiO2 Intake & Output 02/20/22 02/21/22 02/21/22 18:59 06:59 18:59 Other: Voiding Method Toilet Toilet # Voids 3 1 - Exam General: non toxic, no distress, appears at stated age, normal weight , currently on room air oxygen. Quite nervous due to her underlying pneumonia. Derm: no unusual rashes/lesions, warm Head: atraumatic, normocephalic, symmetric Eyes: EOMI, no lid lag, anicteric sclera, pupils equal round reactive to light ENT: Nose and ears atraumatic Neck: No cervical lymphadenopathy, trachea midline, supple Mouth: no lip lesion, mucus membranes moist Cardiovascular: S1S2 reg, no murmur, positive dorsalis pedis pulse bilateral, no edema Lungs the patient has diminished breath on the left lung base along with some dullness to percussion and some limited track of the left lung area. Abdominal: soft, nontender to palpation, no guarding Ext: muscle strength 5 out of 5 in all 4 extremities grossly, no gross muscle atrophy, no contractures, Neuro: CN II-XI grossly intact, no gross focal neuro deficits Psych: Alert, oriented, appropriate affect - Labs CBC & Chem 7: 02/21/22 05:30 02/21/22 05:30 Labs: Abnormal Lab Results - Last 24 Hours (Table) 02/20/22 02/20/22 02/20/22 Range/Units 13:59 13:59 18:08 WBC 16.4 H (3.8-10.6) k/uL RBC 3.67 L (3.80-5.40) m/uL Hgb (12.0-15.0) g/dL Hct (37.2-46.3) % MCV (80.0-97.0) fL MCHC (32.0-37.0) g/dL Plt Count 508 H (150-450) k/uL Immature Gran # (0.00-0.04) X 10*3/uL Neutrophils # 13.9 H (1.3-7.7) k/uL Monocytes # (0.20-1.00) X 10*3/uL Sodium 135 L (137-145) mmol/L BUN (9.0-27.0) mg/dL Glucose 198 H (74-99) mg/dL POC Glucose (mg/dL) 178 H (75-99) mg/dL Calcium (8.7-10.3) mg/dL 02/21/22 02/21/22 Range/Units 05:30 05:30 WBC 14.94 H (3.8-10.6) k/uL RBC 3.12 L (3.80-5.40) m/uL Hgb 9.5 L (12.0-15.0) g/dL Hct 30.6 L (37.2-46.3) % MCV 98.1 H (80.0-97.0) fL MCHC 31.0 L (32.0-37.0) g/dL Plt Count 499 H (150-450) k/uL Immature Gran # 0.08 H (0.00-0.04) X 10*3/uL Neutrophils # 11.84 H (1.3-7.7) k/uL Monocytes # 1.17 H (0.20-1.00) X 10*3/uL Sodium (137-145) mmol/L BUN 8.7 L (9.0-27.0) mg/dL Glucose (74-99) mg/dL POC Glucose (mg/dL) (75-99) mg/dL Calcium 8.6 L (8.7-10.3) mg/dL Microbiology - Last 24 Hours (Table) 02/19/22 04:37 Blood Culture - Preliminary Blood No Growth after 48 hours 02/19/22 03:50 Blood Culture - Preliminary Blood No Growth after 48 hours Assessment and Plan Plan: community-acquired left lower lobe pneumonia with a parapneumonic effusion , and follow-up chest x-ray from today shows interval worsening and increase in size of left-sided pleural effusion which is probably moderate in size. dyspnea cough secondary to above Pleuritic left-sided chest pain secondary to above extrapulmonary manifestation of pneumonia including diarrhea , improved Mild leukocytosis Hypotension/presyncope, normal echocardiogram, normal carotid Dopplers. Plan Increase his IV fluids to 75 mL an hour Advance diet Encourage oral intake Keep same antibiotic coverage Proceed with a CT angiogram of the chest Will drain any sizable pleural effusion with the next 24 hours Pro-calcitonin LEVEL IS MILDLY ELEVATED No encephalopathy Fully agree on the current treatment plan. continue Rocephin and Zithromax for now. Robitussin-DM for cough and congestion We'll continue to follow.
--- NOTE | 2022-02-21 13:01 | CT ---
EXAMINATION TYPE: CT chest angio for PE DATE OF EXAM: 02/21/2022 COMPARISON: None HISTORY: pneumonia CT DLP: 340.3 mGycm Automated exposure control for dose reduction was used. Technique: CT Chest for pulmonary embolism performed with with IV Contrast, patient injected with 100 mL of Isovue 370. 3-D postprocessing was performed. FINDINGS: There is a large left pleural effusion and a moderate right pleural effusion. There are bibasilar inf iltrates/atelectasis. There is no pneumothorax. Right vessels chest are normal is no mediastinal, hilar or axillary adenopathy. There are no filling defects within the pulmonary artery or branches to suggest pulmonary embolus upp er abdomen reveals no gross. The osseous structures are intact. IMPRESSION: 1. No evidence of pulmonary embolism. 2. Large bilateral pleural effusions left greater than right, and bilateral lower lobe atelectasis/i nfiltrates.
[2022-02-21] MEDS ORDERED: diphenhydrAMINE 25 MG CAP PO PRN (21:00)
[2022-02-21] MEDS ORDERED: ACETAMINOPHEN TAB 500 MG TAB PO PRN (21:00)
[2022-02-21] MEDS: AZITHROMYCIN 500 MG in SODIUM CHLORIDE 0.9% 250 ML IVPB SCH (23:22)
[2022-02-22] MEDS: SODIUM CHLORIDE 0.9% 1,000 ML IV SCH ×2 (02:31→04:13)
[2022-02-22] MEDS: HYDROcodone/APAP 5-325MG 1 EACH TAB PO PRN ×3 (07:10→17:24)
[2022-02-22] MEDS: HEPARIN SODIUM,PORCINE/PF 5,000 UNIT/0.5 ML SYRINGE SQ SCH ×3 (08:13→19:43)
[2022-02-22] MEDS: MULTIVITAMINS, THERA 1 EACH TAB PO SCH ×2 (08:17→08:18)
--- NOTE | 2022-02-22 08:42 | P.PN ---
Subjective Progress Note Date: 02/22/22 Patient had another episode of fevers overnight, T-max 101. Likely will need drainage of left-sided pleural effusion to rule out empyema. Pulmonary medicine following along with us, appreciate their recommendations. Ongoing antibiotic therapy with ceftriaxone/azithromycin. Legionella was negative. Computed tomography scan of the chest yesterday was negative for coronary embolism, but did redemonstrate findings of a subtle pleural effusion, infiltrate, as well as right-sided pleural effusion which is lesser than the left side. Patient says her cough is improved with the cough syrup, [place]. She does feel like she is getting a limited amount of rest overnight. Her blood pressures are 124/76 this morning, 93% on room air. Gen: awake, alert HEENT: normocephalic, atraumatic, good hearing acuity, moist mucous membranes Resp: good air exchange, breathing comfortably with no accessory muscle use, diminished breath sounds in the left base, otherwise clear CVS: good distal perfusion x 4, regular rate and rhythm, no murmurs GI: soft, NTTP, ND : no SPT, no CVAT, cobb catheter not present MSK: no pitting edema, no clubbing Neuro: non-focal, moving all extremities Psych: cooperative, euthymic mood Assessment/plan: Sepsis suspected secondary to community acquired pneumonia Bilateral Pleural Effusions, likely parapneumonic -Continue with azithromycin and ceftriaxone -IV fluids -Follow-up pro-calcitonin levels -Follow up blood and sputum cultures -Pulmonology consult, appreciate recommendations -Guaifenesin/codeine every 6 hours when necessary for cough -Repeat chest x-ray in the morning -Echo pending -BNP pending -Legionella pending DVT prophylaxis -Heparin subq The patient is admitted with an anticipated greater than 2 midnight stay for evaluation of sepsis CODE STATUS: Full Code Discussed with: Patient Anticipated discharge date: To be decided Anticipated discharge place: Home Objective - Vital Signs Vital signs: Vital Signs Temp 100.8 F H 02/22/22 08:00 Pulse 103 H 02/22/22 08:00 Resp 20 02/22/22 02:00 BP 124/76 02/22/22 08:00 Pulse Ox 93 L 02/22/22 08:00 FiO2 Intake & Output 02/21/22 02/22/22 02/22/22 18:59 06:59 18:59 Intake Total 750 Balance 750 Intake: IV 750 Sodium Chloride 0.9% 1, 750 000 ml @ 75 mls/hr IV . [id number] [facility] Rx#:[id number] Other: Voiding Method Toilet Toilet # Voids 1 - Labs CBC & Chem 7: 02/21/22 05:30 02/21/22 05:30 Labs: Abnormal Lab Results - Last 24 Hours (Table) 02/21/22 02/21/22 Range/Units 05:30 05:30 WBC 14.94 H (4.50-10.00) X 10*3/uL RBC 3.12 L (4.10-5.20) X 10*6/uL Hgb 9.5 L (12.0-15.0) g/dL Hct 30.6 L (37.2-46.3) % MCV 98.1 H (80.0-97.0) fL MCHC 31.0 L (32.0-37.0) g/dL Plt Count 499 H (140-440) X 10*3/uL Immature Gran # 0.08 H (0.00-0.04) X 10*3/uL Neutrophils # 11.84 H (1.80-7.70) X 10*3/uL Monocytes # 1.17 H (0.20-1.00) X 10*3/uL BUN 8.7 L (9.0-27.0) mg/dL Calcium 8.6 L (8.7-10.3) mg/dL Microbiology - Last 24 Hours (Table) 02/19/22 04:37 Blood Culture - Preliminary Blood No Growth after 72 hours 02/19/22 03:50 Blood Culture - Preliminary Blood No Growth after 72 hours
[2022-02-22] MEDS: DOCUSATE 100 MG CAP PO SCH ×2 (09:17→21:15)
[2022-02-22 09:23] LABS: Basophils # (A) 0.04 X 10*3/uL (0.00-0.10); Basophils % (A) 0.3 %; Eosinophils # (A) 0.07 X 10*3/uL (0.04-0.35); Eosinophils % (A) 0.5 %; HCT 29.5 % (37.2-46.3); HGB 9.3 g/dL (12.0-15.0); Immature Grans, Automated 0.5 %; Lymphocytes # (A) 1.28 X 10*3/uL (0.90-5.00); Lymphocytes % (A) 8.9 %; MCH 30.8 pg (27.0-32.0); MCHC 31.5 g/dL (32.0-37.0); MCV 97.7 fL (80.0-97.0); Mean Platelet Volume 9.6 fL (9.5-12.2); Monocytes # (A) 1.33 X 10*3/uL (0.20-1.00); Monocytes % (A) 9.2 %; NRBC Per 100 WBC 0 /100 WBCS (0.0-0.0); Neutrophils # (A) 11.63 X 10*3/uL (1.80-7.70); Neutrophils % (A) 80.6 %; Platelet Count 492 X 10*3/uL (140-440); RBC 3.02 X 10*6/uL (4.10-5.20); RDW 12.4 % (11.5-14.5); WBC 14.42 X 10*3/uL (4.50-10.00)
[2022-02-22 10:09] LABS: African American GFR (CKD) 111.2 (60.0-200.0); Anion Gap 13.9 mmol/L (10.00-18.00); BUN/Creat Ratio 9.02 Ratio (12.00-20.00); Blood Urea Nitrogen 5.6 mg/dL (9.0-27.0); Carbon Dioxide 21.5 mmol/L (20.0-27.5); Magnesium 2.1 mg/dL (1.5-2.4); Non-African American GFR(CKD) 95.9 (60.0-200.0); Potassium 4.3 mmol/L (3.5-5.5)
--- NOTE | 2022-02-22 13:42 | P.PN ---
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 The patient was having also some abdominal discomfort, shaking chills, loose bowel movements and she end up coming into the hospital for further care. The chest x-ray showed a left lower lobe consolidation and small left-sided pleural effusion. CAT scan of the abdomen and pelvis was also done that showed left lower lobe atelectasis/infiltrate with a pleural effusion and small pericardial effusion. Based on that, the patient was diagnosed having a community-acquired pneumonia. The patient was hospitalized and currently the patient on IV antibiotics. The sedimentation rate is at 104. CRP is at 13.1. COVID 19 testing was negative. Influenza screen was negative. The patient was started on a combination of Rocephin and Zithromax. The lactic acid level was at 0.9. Troponin was at 0.01 and a CRP level was at 13. The patient was sent, was at 17.2 with a hemoglobin of 11.3. No previous episodes of pneumonias. No lung history in terms of lung disease. No chronic illnesses. No aspiration. No trauma to the chest. No DVTs or pulmonary embolism. On 02/21/2022 the patient is being seen for a follow-up. The patient is quite nervous and anxious. She is still on room air oxygen. He still having pleuritic chest pain on the left and she is using incentive spirometer. Yesterday she had an event and her blood pressure dropped down to 60/47. This occurred approximately 6 PM yesterday. She immediately recovered and her blood pressure is still actively soft. No significant tachycardia. Most recent blood pressures 107/68.. The patient's oral intake is quite diminished. She is afebrile. Her white cell count is at 14.9 with hemoglobin of 0.5 and the rest of the electrolytes are all within normal limits. The blood cultures of been negative thus far. A repeat in the follow-up chest x-ray was done this morning and a patient has developed a left-sided pleural effusion and a very tiny right- sided pleural effusion. The left-sided pleural effusion is currently moderate in size and there is some residual inflammatory changes and left lung base. Despite all this, the patient does not look toxic at all. Her breathing is not labored. No altered mentation. She is producing adequate amount of urine output. Echocardiogram was obtained and it showed normal findings. Carotid Dopplers were also negative. A CT of the chest and a pulmonary CT angiogram was ordered. 2021, the patient is feeling better. Her pleurisy is still active although it is on the lower pain severity on today's evaluation. She is taking [place] for pain control. Meanwhile, the patient continues to be on examination Rocephin and Zithromax. Based on the events that occurred yesterday, the patient underwent an echocardiogram that showed no acute abnormalities and the Doppler of the carotids also within normal limits. The patient otherwise is using incentive spirometer. She had a low-grade fever 100.8 and currently she is afebrile. A computed tomography scan of the chest was done and showed atelectatic changes and left lung base along with bilateral pleural effusion moderate on the left and small on the right. The patient remains on room air oxygen. She does not look toxic looking. She remains on IV fluids normal sali ne at the rate of 75 mL an hour. Discussed the findings with the patient and I recommended an ultrasound-guided thoracentesis of the left lung to be done by interventional radiology. Note that a CAT scan of the chest also showed a small pericardial effusion and this was not seen on the echocardiogram. On today's blood work, the patient has a white cell count of 14.4 with a hemoglobin of 9.3. The BUN is at 5.6 with a creatinine of 0.9 and sodium level of 135. Objective - Vital Signs Vital signs: Vital Signs Temp 97.9 F 02/22/22 13:27 Pulse 83 02/22/22 13:27 Resp 20 02/22/22 02:00 BP 102/73 02/22/22 13:27 Pulse Ox 96 02/22/22 13:27 FiO2 Intake & Output 02/21/22 02/22/22 02/22/22 18:59 06:59 18:59 Intake Total 750 Balance 750 Intake: IV 750 Sodium Chloride 0.9% 1, 750 000 ml @ 75 mls/hr IV . [id number] [facility] Rx#:[id number] Other: Voiding Method Toilet Toilet # Voids 1 - Exam General: non toxic, no distress, appears at stated age, normal weight , currently on room air oxygen. Quite nervous due to her underlying pneumonia. Derm: no unusual rashes/lesions, warm Head: atraumatic, normocephalic, symmetric Eyes: EOMI, no lid lag, anicteric sclera, pupils equal round reactive to light ENT: Nose and ears atraumatic Neck: No cervical lymphadenopathy, trachea midline, supple Mouth: no lip lesion, mucus membranes moist Cardiovascular: S1S2 reg, no murmur, positive dorsalis pedis pulse bilateral, no edema Lungs the patient has diminished breath on the left lung base along with some dullness to percussion and some limited track of the left lung area. Abdominal: soft, nontender to palpation, no guarding Ext: muscle strength 5 out of 5 in all 4 extremities grossly, no gross muscle atrophy, no contractures, Neuro: CN II-XI grossly intact, no gross focal neuro deficits Psych: Alert, oriented, appropriate affect - Labs CBC & Chem 7: 02/22/22 05:11 02/22/22 05:11 Labs: Abnormal Lab Results - Last 24 Hours (Table) 02/22/22 02/22/22 Range/Units 05:11 05:11 WBC 14.42 H (4.50-10.00) X 10*3/uL RBC 3.02 L (4.10-5.20) X 10*6/uL Hgb 9.3 L (12.0-15.0) g/dL Hct 29.5 L (37.2-46.3) % MCV 97.7 H (80.0-97.0) fL MCHC 31.5 L (32.0-37.0) g/dL Plt Count 492 H (140-440) X 10*3/uL Immature Gran # 0.07 H (0.00-0.04) X 10*3/uL Neutrophils # 11.63 H (1.80-7.70) X 10*3/uL Monocytes # 1.33 H (0.20-1.00) X 10*3/uL BUN 5.6 L (9.0-27.0) mg/dL BUN/Creatinine Ratio 9.02 L (12.00-20.00) Ratio Calcium 8.0 L (8.7-10.3) mg/dL Microbiology - Last 24 Hours (Table) 02/19/22 04:37 Blood Culture - Preliminary Blood No Growth after 72 hours 02/19/22 03:50 Blood Culture - Preliminary Blood No Growth after 72 hours Assessment and Plan Plan: community-acquired left lower lobe pneumonia with a parapneumonic effusion , and follow-up chest x-ray from today shows interval worsening and increase in size of left-sided pleural effusion which is probably moderate in size. The CTA of the chest showed no this any pulmonary embolism. It showed better pleural effusion left more than right along with some compressive atelectatic changes and left lung base. The patient continues to have some pleuritic pain on the left although it is of a l less severity. Same time, there is no hemodynamic instability. Echocardiogram was within normal limits. White cell count is slightly elevated at 14.4. dyspnea cough secondary to above Pleuritic left-sided chest pain secondary to above extrapulmonary manifestation of pneumonia including diarrhea , improved Mild leukocytosis Hypotension/presyncope, normal echocardiogram, normal carotid Dopplers. Plan IV fluids to KVO I recommend a ultrasound-guided thoracentesis of the left lung by interventional radiology and fluid was sent for analysis. [place] for pain control Continue same antibiotic coverage We'll continue to follow
[2022-02-22] MEDS: IBUPROFEN 400 MG TAB PO PRN ×2 (14:56→21:14)
[2022-02-22] MEDS: AZITHROMYCIN 500 MG in SODIUM CHLORIDE 0.9% 250 ML IVPB SCH (21:15)
[2022-02-23] MEDS: HYDROcodone/APAP 5-325MG 1 EACH TAB PO PRN ×3 (01:17→20:28)
[2022-02-23] MEDS: IBUPROFEN 400 MG TAB PO PRN (05:08)
[2022-02-23] MEDS: HEPARIN SODIUM,PORCINE/PF 5,000 UNIT/0.5 ML SYRINGE SQ SCH ×2 (06:56→18:04)
[2022-02-23] MEDS: MULTIVITAMINS, THERA 1 EACH TAB PO SCH (06:57)
--- NOTE | 2022-02-23 10:05 | P.PN ---
Subjective Progress Note Date: 02/23/22 Patient had another episode of fevers overnight, T-max 101. Likely will need drainage of left-sided pleural effusion to rule out empyema. Pulmonary medicine following along with us, appreciate their recommendations. Ongoing antibiotic therapy with ceftriaxone/azithromycin. Legionella was negative. Computed tomography scan of the chest yesterday was negative for coronary embolism, but did redemonstrate findings of a subtle pleural effusion, infiltrate, as well as right-sided pleural effusion which is lesser than the left side. Patient says her cough is improved with the cough syrup, [place]. She does feel like she is getting a limited amount of rest overnight. Her blood pressures are 124/76 this morning, 93% on room air. Gen: awake, alert HEENT: normocephalic, atraumatic, good hearing acuity, moist mucous membranes Resp: good air exchange, breathing comfortably with no accessory muscle use, diminished breath sounds in the left base, otherwise clear CVS: good distal perfusion x 4, regular rate and rhythm, no murmurs GI: soft, NTTP, ND : no SPT, no CVAT, cobb catheter not present MSK: no pitting edema, no clubbing Neuro: non-focal, moving all extremities Psych: cooperative, euthymic mood Assessment/plan: Sepsis suspected secondary to community acquired pneumonia Bilateral Pleural Effusions, likely parapneumonic -Continue with azithromycin and ceftriaxone -IV fluids -Follow-up pro-calcitonin levels -Follow up blood and sputum cultures -Pulmonology consult, appreciate recommendations -Guaifenesin/codeine every 6 hours when necessary for cough -Repeat chest x-ray in the morning -Echo with EF 60%, no WMA, no diastolic dysfunction -BNP low -Legionella negative DVT prophylaxis -Heparin subq The patient is admitted with an anticipated greater than 2 midnight stay for evaluation of sepsis CODE STATUS: Full Code Discussed with: Patient Anticipated discharge date: To be decided Anticipated discharge place: Home Objective - Vital Signs Vital signs: Vital Signs Temp 98.0 F 02/23/22 07:24 Pulse 75 02/23/22 07:24 Resp 22 02/23/22 07:24 BP 118/77 02/23/22 07:24 Pulse Ox 94 L 02/23/22 07:24 FiO2 Intake & Output 02/22/22 02/23/22 02/23/22 18:59 06:59 18:59 Other: Voiding Method Toilet # Voids 2 - Labs CBC & Chem 7: 02/22/22 05:11 02/22/22 05:11 Labs: Abnormal Lab Results - Last 24 Hours (Table) 02/22/22 Range/Units 05:11 BUN 5.6 L (9.0-27.0) mg/dL BUN/Creatinine Ratio 9.02 L (12.00-20.00) Ratio Calcium 8.0 L (8.7-10.3) mg/dL Microbiology - Last 24 Hours (Table) 02/19/22 04:37 Blood Culture - Preliminary Blood No Growth after 96 hours 02/19/22 03:50 Blood Culture - Preliminary Blood No Growth after 96 hours
[2022-02-23 12:03] LABS: INR 1.1 (<1.2); Prothrombin Time 12.1 sec (9.0-12.0)
--- NOTE | 2022-02-23 14:28 | P.PN ---
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 The patient was having also some abdominal discomfort, shaking chills, loose bowel movements and she end up coming into the hospital for further care. The chest x-ray showed a left lower lobe consolidation and small left-sided pleural effusion. CAT scan of the abdomen and pelvis was also done that showed left lower lobe atelectasis/infiltrate with a pleural effusion and small pericardial effusion. Based on that, the patient was diagnosed having a community-acquired pneumonia. The patient was hospitalized and currently the patient on IV antibiotics. The sedimentation rate is at 104. CRP is at 13.1. COVID 19 testing was negative. Influenza screen was negative. The patient was started on a combination of Rocephin and Zithromax. The lactic acid level was at 0.9. Troponin was at 0.01 and a CRP level was at 13. The patient was sent, was at 17.2 with a hemoglobin of 11.3. No previous episodes of pneumonias. No lung history in terms of lung disease. No chronic illnesses. No aspiration. No trauma to the chest. No DVTs or pulmonary embolism. On 02/21/2022 the patient is being seen for a follow-up. The patient is quite nervous and anxious. She is still on room air oxygen. He still having pleuritic chest pain on the left and she is using incentive spirometer. Yesterday she had an event and her blood pressure dropped down to 60/47. This occurred approximately 6 PM yesterday. She immediately recovered and her blood pressure is still actively soft. No significant tachycardia. Most recent blood pressures 107/68.. The patient's oral intake is quite diminished. She is afebrile. Her white cell count is at 14.9 with hemoglobin of 0.5 and the rest of the electrolytes are all within normal limits. The blood cultures of been negative thus far. A repeat in the follow-up chest x-ray was done this morning and a patient has developed a left-sided pleural effusion and a very tiny right- sided pleural effusion. The left-sided pleural effusion is currently moderate in size and there is some residual inflammatory changes and left lung base. Despite all this, the patient does not look toxic at all. Her breathing is not labored. No altered mentation. She is producing adequate amount of urine output. Echocardiogram was obtained and it showed normal findings. Carotid Dopplers were also negative. A CT of the chest and a pulmonary CT angiogram was ordered. 2021, the patient is feeling better. Her pleurisy is still active although it is on the lower pain severity on today's evaluation. She is taking [place] for pain control. Meanwhile, the patient continues to be on examination Rocephin and Zithromax. Based on the events that occurred yesterday, the patient underwent an echocardiogram that showed no acute abnormalities and the Doppler of the carotids also within normal limits. The patient otherwise is using incentive spirometer. She had a low-grade fever 100.8 and currently she is afebrile. A computed tomography scan of the chest was done and showed atelectatic changes and left lung base along with bilateral pleural effusion moderate on the left and small on the right. The patient remains on room air oxygen. She does not look toxic looking. She remains on IV fluids normal salin e at the rate of 75 mL an hour. Discussed the findings with the patient and I recommended an ultrasound-guided thoracentesis of the left lung to be done by interventional radiology. Note that a CAT scan of the chest also showed a small pericardial effusion and this was not seen on the echocardiogram. On today's blood work, the patient has a white cell count of 14.4 with a hemoglobin of 9.3. The BUN is at 5.6 with a creatinine of 0.9 and sodium level of 135. 02/23/2022 patient seen in follow-up on medical surgical floor. She is sitting up in the recliner, has a persistent dry cough, and pleuritic chest discomfort with a deep breathing and coughing. No hemoptysis, she remains on accommodation of Rocephin and azithromycin for acute community-acquired pneumonia. room air pulse ox is 98%. Yesterday's CTA chest showed no evidence of pulmonary embolism, and did show large bilateral pleural effusions left greater than right and bilateral lower lobe atelectasis/infiltrate. interventional radiology was consulted for left-sided thoracentesis, and the pleural fluid culture to be sent for Gram stain and cultures, cytology, and analysis. Patient is scheduled for the procedure some time this afternoon. blood cultures have shown no growth thus far. Objective - Vital Signs Vital signs: Vital Signs Temp 98.4 F 02/23/22 13:31 Pulse 80 02/23/22 13:31 Resp 22 02/23/22 13:31 BP 120/76 02/23/22 13:31 Pulse Ox 97 02/23/22 13:31 FiO2 Intake & Output 02/22/22 02/23/22 02/23/22 18:59 06:59 18:59 Other: Voiding Method Toilet # Voids 2 - Exam GENERAL EXAM: Alert, very pleasant 61-year-old white female, on room air, comfortable in no apparent distress. HEAD: Normocephalic/atraumatic. EYES: Normal reaction of pupils, equal size. Conjunctiva pink, sclera white. NOSE: Clear with pink turbinates. THROAT: No erythema or exudates. NECK: No masses, no JVD, no thyroid enlargement, no adenopathy. CHEST: No chest wall deformity. Symmetrical expansion. LUNGS: Equal air entry with diminished breath sounds bilaterally, with bilateral crackles CVS: Regular rate and rhythm, normal S1 and S2, no gallops, no murmurs, no rubs ABDOMEN: Soft, nontender. No hepatosplenomegaly, normal bowel sounds, no guarding or rigidity. EXTREMITIES: No clubbing, no edema, no cyanosis, 2+ pulses and upper and lower extremities. MUSCULOSKELETAL: Muscle strength and tone normal. SPINE: No scoliosis or deformity SKIN: No rashes CENTRAL NERVOUS SYSTEM: Alert and oriented -3. No focal deficits, tone is normal in all 4 extremities. PSYCHIATRIC: Alert and oriented -3. Appropriate affect. Intact judgment and insight. - Labs CBC & Chem 7: 02/22/22 05:11 02/22/22 05:11 Labs: Abnormal Lab Results - Last 24 Hours (Table) 02/23/22 Range/Units 11:33 PT 12.1 H (9.0-12.0) sec Microbiology - Last 24 Hours (Table) 02/19/22 04:37 Blood Culture - Preliminary Blood No Growth after 96 hours 02/19/22 03:50 Blood Culture - Preliminary Blood No Growth after 96 hours Assessment and Plan Plan: assessment: #1. Acute community acquired pneumonia, of the left lower lobe with a parapn eumonic effusion. Follow-up chest x-ray showed worsening and increase in size of the left pleural effusion. CT of the chest showed no pulmonary embolism, but did show bilateral pleural effusions, left greater than right with some compressive atelectatic changes at the left lung base. Patient continues to have pleuritic chest pain on the left. Echocardiogram was within normal limits. #2. Dyspnea, cough, mild leukocytosis related to the above #3. Pleuritic left-sided chest pain secondary to the above #4. Diarrhea, likely extrapulmonary manifestation of pneumonia, improved #5. Mild leukocytosis #6. Presyncope, related to hypotension, echocardiogram and carotid Dopplers were within normal limits Plan: Interventional radiology has been consulted for an ultrasound-guided thoracen tesis of the left lung Pleural fluid to be sent for Gram stain and cultures, Cytology and pleural fluid analysisContinue Cough syrup, and [place] for pain control Continue same antibiotic coverageWe'll continue to follow her clinical course and await pleural fluid culture resultsI have personally seen and examined the patient, performed the documentation and the assessment and plan as written. Number of minutes spent on the visit: [10] Time with Patient: Less than 30
[2022-02-23] MEDS ORDERED: LIDOCAINE 1% PF 10 MG/ML (5 ML AMP) SQ ONE (15:09)
[2022-02-23] MEDS ORDERED: LIDOCAINE 1% INJ 10MG/ML (5 ML VIAL-PF) SQ ONE (15:09)
--- NOTE | 2022-02-23 15:27 | US ---
EXAMINATION TYPE: US thoracentesis DATE OF EXAM: 02/23/2022 COMPARISON: CT 02/21/2022 HISTORY: Pleural effusion. FINDINGS: Maximal barrier technique was utilized. The skin overlying a suitable pocket of fluid was localized and the overlying skin prepped and draped. Lidocaine was used for local anesthesia. Ultras ound was used with sterile technique. A 5 Frisian catheter over guide needle was advanced into the pl eural fluid collection using ultrasound guidance and the catheter advanced, needle removed. Approxim ately 0.8 liter(s) of serous fluid was removed. Catheter was withdrawn and hemostasis achieved. The re is no immediate complication. The patient discharged in stable condition without complication. IMPRESSION: STATUS POST ULTRASOUND GUIDED THORACENTESIS, POST PROCEDURE CHEST X-RAY PENDING. THIS [place] OCEDURE WAS PERFORMED BY THE UNDERSIGNED. Prior CT does show small pericardial effusion.
--- NOTE | 2022-02-23 15:35 | XR ---
EXAMINATION TYPE: XR chest 1V portable DATE OF EXAM: 02/23/2022 COMPARISON: Chest x-ray 02/21/2022 HISTORY: Status post left thoracentesis TECHNIQUE: Single frontal view of the chest is obtained. FINDINGS: There is been interval improvement in aeration at the left lung base. There is no evident pneumothorax. Bibasilar density persists. Cardiac mediastinal silhouette is likely stable. Patient is rotated slightly, heart size mildly accentuated. Aorta is dense. IMPRESSION: No evident complication status post thoracentesis.
[2022-02-23] MEDS: DOCUSATE 100 MG CAP PO SCH (18:03)
[2022-02-23] MEDS: AZITHROMYCIN 500 MG in SODIUM CHLORIDE 0.9% 250 ML IVPB SCH (20:27)
[2022-02-23] MEDS: guaiFENesin-Coden 100-10MG/5ML 10 ML CUP PO PRN (20:28)
[2022-02-23] MEDS: SODIUM CHLORIDE 0.9% 1,000 ML IV SCH (22:17)
[2022-02-24] MEDS: HEPARIN SODIUM,PORCINE/PF 5,000 UNIT/0.5 ML SYRINGE SQ SCH ×3 (00:17→15:41)
[2022-02-24 00:20] LABS: LDH, Body Fluid Source Pleural Fluid; T. Protein, Body Fluid Source Pleural Fluid; Total Protein, Body Fluid 3310 mg/dL
[2022-02-24 00:31] LABS: Appearance,BF Slightly Hazy
[2022-02-24] MEDS: guaiFENesin-Coden 100-10MG/5ML 10 ML CUP PO PRN (07:39)
[2022-02-24] MEDS: DOCUSATE 100 MG CAP PO SCH ×2 (07:40→20:18)
[2022-02-24] MEDS: MULTIVITAMINS, THERA 1 EACH TAB PO SCH (08:31)
[2022-02-24 09:27] LABS: Basophils # (A) 0.04 X 10*3/uL (0.00-0.10); Basophils % (A) 0.4 %; Eosinophils # (A) 0.15 X 10*3/uL (0.04-0.35); Eosinophils % (A) 1.4 %; HCT 30.2 % (37.2-46.3); HGB 9.5 g/dL (12.0-15.0); Lymphocytes # (A) 1.35 X 10*3/uL (0.90-5.00); Lymphocytes % (A) 12.6 %; MCH 30.8 pg (27.0-32.0); MCHC 31.5 g/dL (32.0-37.0); MCV 98.1 fL (80.0-97.0); Mean Platelet Volume 9.4 fL (9.5-12.2); Monocytes # (A) 0.77 X 10*3/uL (0.20-1.00); Monocytes % (A) 7.2 %; NRBC Per 100 WBC 0 /100 WBCS (0.0-0.0); Neutrophils # (A) 8.28 X 10*3/uL (1.80-7.70); Neutrophils % (A) 77.4 %; Platelet Count 596 X 10*3/uL (140-440); RBC 3.08 X 10*6/uL (4.10-5.20); RDW 12.2 % (11.5-14.5)
[2022-02-24 09:33] LABS: African American GFR (CKD) 108.5 (60.0-200.0); Anion Gap 12.9 mmol/L (10.00-18.00); BUN/Creat Ratio 8.49 Ratio (12.00-20.00); Blood Urea Nitrogen 5.7 mg/dL (9.0-27.0); Calcium 8.1 mg/dL (8.7-10.3); Carbon Dioxide 22.3 mmol/L (20.0-27.5); Magnesium 2.3 mg/dL (1.5-2.4); Non-African American GFR(CKD) 93.6 (60.0-200.0)
[2022-02-24 09:46] LABS: C Reactive Protein 22.4 mg/dL (<1.0)
[2022-02-24] MEDS ORDERED: FUROSEMIDE 10 MG/ML 4 ML VIAL IV STA (10:21)
[2022-02-24] MEDS: methylPREDNISolone SOD SUCCI 40 MG/ML 1 ML VIAL IV SCH ×2 (11:13→17:14)
--- NOTE | 2022-02-24 12:22 | P.PN ---
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 The patient was having also some abdominal discomfort, shaking chills, loose bowel movements and she end up coming into the hospital for further care. The chest x-ray showed a left lower lobe consolidation and small left-sided pleural effusion. CAT scan of the abdomen and pelvis was also done that showed left lower lobe atelectasis/infiltrate with a pleural effusion and small pericardial effusion. Based on that, the patient was diagnosed having a community-acquired pneumonia. The patient was hospitalized and currently the patient on IV antibiotics. The sedimentation rate is at 104. CRP is at 13.1. COVID 19 testing was negative. Influenza screen was negative. The patient was started on a combination of Rocephin and Zithromax. The lactic acid level was at 0.9. Troponin was at 0.01 and a CRP level was at 13. The patient was sent, was at 17.2 with a hemoglobin of 11.3. No previous episodes of pneumonias. No lung history in terms of lung disease. No chronic illnesses. No aspiration. No trauma to the chest. No DVTs or pulmonary embolism. On 02/21/2022 the patient is being seen for a follow-up. The patient is quite nervous and anxious. She is still on room air oxygen. He still having pleuritic chest pain on the left and she is using incentive spirometer. Yesterday she had an event and her blood pressure dropped down to 60/47. This occurred approximately 6 PM yesterday. She immediately recovered and her blood pressure is still actively soft. No significant tachycardia. Most recent blood pressures 107/68.. The patient's oral intake is quite diminished. She is afebrile. Her white cell count is at 14.9 with hemoglobin of 0.5 and the rest of the electrolytes are all within normal limits. The blood cultures of been negative thus far. A repeat in the follow-up chest x-ray was done this morning and a patient has developed a left-sided pleural effusion and a very tiny right- sided pleural effusion. The left-sided pleural effusion is currently moderate in size and there is some residual inflammatory changes and left lung base. Despite all this, the patient does not look toxic at all. Her breathing is not labored. No altered mentation. She is producing adequate amount of urine output. Echocardiogram was obtained and it showed normal findings. Carotid Dopplers were also negative. A CT of the chest and a pulmonary CT angiogram was ordered. 2021, the patient is feeling better. Her pleurisy is still active although it is on the lower pain severity on today's evaluation. She is taking [place] for pain control. Meanwhile, the patient continues to be on examination Rocephin and Zithromax. Based on the events that occurred yesterday, the patient underwent an echocardiogram that showed no acute abnormalities and the Doppler of the carotids also within normal limits. The patient otherwise is using incentive spirometer. She had a low-grade fever 100.8 and currently she is afebrile. A computed tomography scan of the chest was done and showed atelectatic changes and left lung base along with bilateral pleural effusion moderate on the left and small on the right. The patient remains on room air oxygen. She does not look toxic looking. She remains on IV fluids normal salin e at the rate of 75 mL an hour. Discussed the findings with the patient and I recommended an ultrasound-guided thoracentesis of the left lung to be done by interventional radiology. Note that a CAT scan of the chest also showed a small pericardial effusion and this was not seen on the echocardiogram. On today's blood work, the patient has a white cell count of 14.4 with a hemoglobin of 9.3. The BUN is at 5.6 with a creatinine of 0.9 and sodium level of 135. 02/23/2022 patient seen in follow-up on medical surgical floor. She is sitting up in the recliner, has a persistent dry cough, and pleuritic chest discomfort with a deep breathing and coughing. No hemoptysis, she remains on accommodation of Rocephin and azithromycin for acute community-acquired pneumonia. room air pulse ox is 98%. Yesterday's CTA chest showed no evidence of pulmonary embolism, and did show large bilateral pleural effusions left greater than right and bilateral lower lobe atelectasis/infiltrate. interventional radiology was consulted for left-sided thoracentesis, and the pleural fluid culture to be sent for Gram stain and cultures, cytology, and analysis. Patient is scheduled for the procedure some time this afternoon. blood cultures have shown no growth thus far. On 02/24/2022 patient seen in follow-up on medical surgical floor. Yesterday she underwent left-sided thoracentesis, and 0.8 L of serous fluid was removed and sent for cytology analysis and cultures. Pleural fluid analysis reveals total fluid protein of 3.3 g, and LDH of 156, the same time patient's sed rate was quite elevated at 115, CRP was 22.4, BNP was 1580. WOUND WAS 0.20, WHITE BLOOD CELL COUNT IS IMPROVED AND IS DOWN TO 10.7, HEMOGLOBIN IS 9.5, PLATELET COUNT IS 596. PLEURAL FLUID CULTURES HAVE BEEN SENT AND ARE PENDING, GRAM STAIN showing few white blood cells, no organisms. Patient states that her pleuritic chest pain is resolved completely, she reports no hemoptysis, no fever, she still has a headache, she thinks it may be from persistent coughing. There is a suspicion for pleural effusions related to possibility of underlying connective tissue disorder, and a component CHF with diastolic dysfunction. Patient's headache is reported mostly on the left temporal side, and possibility of temporal arteritis is being considered Objective - Vital Signs Vital signs: Vital Signs Temp 98.5 F 02/24/22 08:00 Pulse 56 L 02/24/22 08:00 Resp 16 02/24/22 08:00 BP 118/72 02/24/22 08:00 Pulse Ox 100 02/24/22 08:00 FiO2 Intake & Output 02/23/22 02/24/22 02/24/22 18:59 06:59 18:59 Intake Total 550 Balance 550 Intake: Oral 550 Other: # Voids 3 - Exam GENERAL EXAM: Alert, very pleasant 61-year-old white female, on room air, comfortable in no apparent distress. HEAD: Normocephalic/atraumatic. EYES: Normal reaction of pupils, equal size. Conjunctiva pink, sclera white. NOSE: Clear with pink turbinates. THROAT: No erythema or exudates. NECK: No masses, no JVD, no thyroid enlargement, no adenopathy. CHEST: No chest wall deformity. Symmetrical expansion. LUNGS: Equal air entry with diminished breath sounds bilaterally, with bilateral crackles CVS: Regular rate and rhythm, normal S1 and S2, no gallops, no murmurs, no rubs ABDOMEN: Soft, nontender. No hepatosplenomegaly, normal bowel sounds, no guarding or rigidity. EXTREMITIES: No clubbing, no edema, no cyanosis, 2+ pulses and upper and lower extremities. MUSCULOSKELETAL: Muscle strength and tone normal. SPINE: No scoliosis or deformity SKIN: No rashes CENTRAL NERVOUS SYSTEM: Alert and oriented -3. No focal deficits, tone is normal in all 4 extremities. PSYCHIATRIC: Alert and oriented -3. Appropriate affect. Intact judgment and insight. - Labs CBC & Chem 7: 02/24/22 05:12 02/24/22 05:12 Labs: Abnormal Lab Results - Last 24 Hours (Table) 02/24/22 02/24/22 02/24/22 Range/Units 05:12 05:12 05:12 WBC 10.70 H (4.50-10.00) X 10*3/uL RBC 3.08 L (4.10-5.20) X 10*6/uL Hgb 9.5 L (12.0-15.0) g/dL Hct 30.2 L (37.2-46.3) % MCV 98.1 H (80.0-97.0) fL MCHC 31.5 L (32.0-37.0) g/dL Plt Count 596 H (140-440) X 10*3/uL MPV 9.4 L (9.5-12.2) fL Immature Gran # 0.11 H (0.00-0.04) X 10*3/uL Neutrophils # 8.28 H (1.80-7.70) X 10*3/uL ESR (0-20) mm/hr BUN 5.7 L (9.0-27.0) mg/dL BUN/Creatinine Ratio 8.49 L (12.00-20.00) Ratio Calcium 8.1 L (8.7-10.3) mg/dL C-Reactive Protein (<1.0) mg/dL Total Protein 5.0 L (6.2-8.2) g/dL 02/24/22 02/24/22 Range/Units 08:16 08:16 WBC (4.50-10.00) X 10*3/uL RBC (4.10-5.20) X 10*6/uL Hgb (12.0-15.0) g/dL Hct (37.2-46.3) % MCV (80.0-97.0) fL MCHC (32.0-37.0) g/dL Plt Count (140-440) X 10*3/uL MPV (9.5-12.2) fL Immature Gran # (0.00-0.04) X 10*3/uL Neutrophils # (1.80-7.70) X 10*3/uL ESR 115 H (0-20) mm/hr BUN (9.0-27.0) mg/dL BUN/Creatinine Ratio (12.00-20.00) Ratio Calcium (8.7-10.3) mg/dL C-Reactive Protein 22.4 H (<1.0) mg/dL Total Protein (6.2-8.2) g/dL Microbiology - Last 24 Hours (Table) 02/23/22 15:05 Gram Stain - Preliminary Pleural Fluid Body Fluid Culture - Preliminary 02/19/22 04:37 Blood Culture - Preliminary Blood No Growth after 120 hours 02/19/22 03:50 Blood Culture - Preliminary Blood No Growth after 120 hours Assessment and Plan Plan: assessment: #1. Acute community acquired pneumonia, of the left lower lobe with a parapneumonic effusion. Follow-up chest x-ray showed worsening and increase in size of the left pleural effusion. CT of the chest showed no pulmonary embolism, but did show bilateral pleural effusions, left greater than right with some compressive atelectatic changes at the left lung base. Patient continues to have pleuritic chest pain on the left. Echocardiogram was within normal limits. Patient status post left-sided thoracentesis would removal of 0.8 L of pleural fluid which is exudative in nature #2. Dyspnea, cough, mild leukocytosis related to the above #3. Pleuritic left-sided chest pain secondary to the above, resolved #4. Diarrhea, likely extrapulmonary manifestation of pneumonia, improved #5. Mild leukocytosis #6. Presyncope, related to hypotension, echocardiogram and carotid Dopplers were within normal limits #7. Bilateral pleural effusions, with the possibility of CHF component with diastolic dysfunction, and pleural fluid related to connective tissue disorder Plan: Pleural fluid analysis has been reviewed showing exudative fluid Suspect component of CHF with diastolic dysfunction There is a possibility of connective tissue disorder based on elevated sed rate We'll order JOSELYN, Rheumatoid factor, C-ANCA, P-ANCA, Anti-DNA Ds antibody, BRANDON level, SSA and SSB antibody, CPK, BNP We'll await final cytology and pleural fluid cultures results Continue current antibiotics, will add IV steroids Solu-Medrol 40 mg every 8 hours, and give the patient 1 time dose of IV Lasix Chest x-ray in the morning, We'll await final results of the markers for connective tissue disorders Number of minutes spent on the visit: [10] Time with Patient: Less than 30
--- NOTE | 2022-02-24 17:42 | P.PN ---
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 Patient had initially been admitted on 02/18/2022 to [facility]. Patient's care/admitting physician is being transferred over to Dr. Jimenez, this morning 02/24/22, per patient's requests and patient will follow-up outpatient with Dr. Jimenez as well. Chest CTA reported no evidence of PE but large bilateral pleural effusions left greater than right. Patient underwent a left thoracentesis yesterday with 0.8 L of serous fluid removed. Tolerated procedure well. Pleural fluid cultures pending. Pleural fluid with total protein 3310, fluid LDH 156. Good air entry, maintaining O2 sats of 100% on room air. Prior CT reported small pericardial effusion. Echo performed reporting normal EF, 60-65% with no significant valvular abnormality. Troponins negative 2. ProBNP 1580.Carotid Doppler reported no significant s tenosis of the common or internal carotid arteries bilaterally. T-max 100.7, WBC trending down, nearly normalized at 10.7. Blood cultures reporting no growth. Hemoglobin 9.5, platelets 596, renal function stable, electrolytes within normal limits, CRP increased to 22.4. Denies chest pain, palpitations or increased shortness of breath. Nonproductive cough. Maintained on IV antibiotics of Zithromax, Rocephin, along with systemic steroids. Objective - Vital Signs Vital signs: Vital Signs Temp 98.5 F 02/24/22 08:00 Pulse 56 L 02/24/22 08:00 Resp 16 02/24/22 08:00 BP 118/72 02/24/22 08:00 Pulse Ox 100 02/24/22 08:00 FiO2 Intake & Output 02/23/22 02/24/22 02/24/22 18:59 06:59 18:59 Intake Total 550 Balance 550 Intake: Oral 550 Other: # Voids 3 - Exam PHYSICAL EXAM: VITAL SIGNS: [As above] GENERAL: Sitting up at side of bed, no acute distress HEENT: Conjunctivae normal. eyes normal. NECK: Supple, No JVD. No thyroid enlargement. No LNs CARDIOVASCULAR: S1, S2 regular.. No murmur RESPIRATION: Equal air entry ,Breath sounds diminished in the bases. ABDOMEN: Soft, nontender . No guarding. no masses palpable. No ascites, No hepatosplenomegaly.Bowel sounds heard. LEGS: No edema. no swelling PSYCHIATRY: Alert and oriented X3, mood and affect normal. NERVOUS SYSTEM: Cranial N 2-12 grossly normal. Moves all 4 limbs. No focal deficits. Strength and sensation grossly intact. Skin: Warm and dry, no rash Microbiology 02/23/22 15:05 Pleural Fluid Gram Stain - Preliminary 02/23/22 15:05 Pleural Fluid Body Fluid Culture - Preliminary 02/19/22 04:37 Blood Blood Culture - Preliminary No Growth after 120 hours 02/19/22 03:50 Blood Blood Culture - Preliminary No Growth after 120 hours - Labs CBC & Chem 7: 02/24/22 05:12 02/24/22 05:12 Labs: Abnormal Lab Results - Last 24 Hours (Table) 02/23/22 02/24/22 02/24/22 Range/Units 11:33 05:12 05:12 WBC 10.70 H (4.50-10.00) X 10*3/uL RBC 3.08 L (4.10-5.20) X 10*6/uL Hgb 9.5 L (12.0-15.0) g/dL Hct 30.2 L (37.2-46.3) % MCV 98.1 H (80.0-97.0) fL MCHC 31.5 L (32.0-37.0) g/dL Plt Count 596 H (140-440) X 10*3/uL MPV 9.4 L (9.5-12.2) fL Immature Gran # 0.11 H (0.00-0.04) X 10*3/uL Neutrophils # 8.28 H (1.80-7.70) X 10*3/uL ESR (0-20) mm/hr PT 12.1 H (9.0-12.0) sec BUN 5.7 L (9.0-27.0) mg/dL BUN/Creatinine Ratio 8.49 L (12.00-20.00) Ratio Calcium 8.1 L (8.7-10.3) mg/dL C-Reactive Protein (<1.0) mg/dL Total Protein (6.2-8.2) g/dL 02/24/22 02/24/2202/24/22 Range/Units 05:12 08:16 08:16 WBC (4.50-10.00) X 10*3/uL RBC (4.10-5.20) X 10*6/uL Hgb (12.0-15.0) g/dL Hct (37.2-46.3) % MCV (80.0-97.0) fL MCHC (32.0-37.0) g/dL Plt Count (140-440) X 10*3/uL MPV (9.5-12.2) fL Immature Gran # (0.00-0.04) X 10*3/uL Neutrophils # (1.80-7.70) X 10*3/uL ESR 115 H (0-20) mm/hr PT (9.0-12.0) sec BUN (9.0-27.0) mg/dL BUN/Creatinine Ratio (12.00-20.00) Ratio Calcium (8.7-10.3) mg/dL C-Reactive Protein 22.4 H (<1.0) mg/dL Total Protein 5.0 L (6.2-8.2) g/dL Microbiology - Last 24 Hours (Table) 02/23/22 15:05 Gram Stain - Preliminary Pleural Fluid Body Fluid Culture - Preliminary 02/19/22 04:37 Blood Culture - Preliminary Blood No Growth after 120 hours 02/19/22 03:50 Blood Culture - Preliminary Blood No Growth after 120 hours Assessment and Plan Assessment: Sepsis secondary to Acute left lower lobe community-acquired pneumonia, with a parapneumonic effusion. Status post left sided thoracentesis, cytology pending Bilateral pleural effusions, possible acute CHF with diastolic dysfunction; elevated sed rate, possibly related to connective tissue disorder,work-up in progress. Pleuritic chest pain secondary to all the above, resolved Near-syncope related to the above Plans: Continue on current medication regime ,monitoring and symptomatic treatment. Maintain IV antibiotics,. Pleural cytology, connective tissue disorder work up/markers pending. DVT prophylaxis in place with heparin subcu. Protonix added for GI prophylaxis. Further recommendations to follow. The impression and plan of care has been dictated as directed. : I performed a history and examination of this patient, discussed the same with the dictator. I agree with the dictator's note ,documented as a scribe. Any additional findings or plans will be noted.
[2022-02-24] MEDS: PANTOPRAZOLE 40 MG/10 ML VIAL IVP SCH (18:26)
[2022-02-24] MEDS: AZITHROMYCIN 500 MG in SODIUM CHLORIDE 0.9% 250 ML IVPB SCH (20:29)
[2022-02-24] MEDS: SODIUM CHLORIDE 0.9% 1,000 ML IV SCH (20:29)
[2022-02-24 21:09] LABS: DNA Double-Stranded NEGATIVE (NEGATIVE)
[2022-02-24 21:09] LABS: Glucose,Whole Blood 153 mg/dL (75-99)
[2022-02-24] MEDS: ACETAMINOPHEN TAB 325 MG TAB PO PRN (23:02)
[2022-02-25] MEDS: INSULIN ASPART (NovoLOG) 100 UNIT/ML VIAL SQ SCH ×5 (00:02→20:18)
[2022-02-25] MEDS: HEPARIN SODIUM,PORCINE/PF 5,000 UNIT/0.5 ML SYRINGE SQ SCH ×4 (01:27→23:27)
[2022-02-25] MEDS: methylPREDNISolone SOD SUCCI 40 MG/ML 1 ML VIAL IV SCH ×2 (01:27→08:25)
[2022-02-25 07:18] LABS: Glucose,Whole Blood 143 mg/dL (75-99)
[2022-02-25] MEDS: DOCUSATE 100 MG CAP PO SCH ×2 (08:17→20:21)
[2022-02-25] MEDS: MULTIVITAMINS, THERA 1 EACH TAB PO SCH (08:19)
--- NOTE | 2022-02-25 08:24 | XR ---
EXAMINATION TYPE: XR chest 1V portable DATE OF EXAM: 02/25/2022 COMPARISON: X-ray dated 02/23/2022 HISTORY: Dyspnea and cough TECHNIQUE: Single frontal view of the chest is obtained. FINDINGS: Bilateral pleural effusions, larger on the left side, apparently progressed compared to the previous x-ray. Thick left midlung zone linear atelectasis with suspected bilateral basal pulmonary atelectasi s. Grossly unremarkable remainder of the lungs. No pneumothorax. Cardiac size cannot be assessed. Unchan ged bony thoracic cage. IMPRESSION: Interval changes as described above.
[2022-02-25] MEDS: PANTOPRAZOLE 40 MG/10 ML VIAL IVP SCH (08:25)
[2022-02-25] MEDS ORDERED: FUROSEMIDE 20 MG TAB PO SCH (09:00)
[2022-02-25 09:55] LABS: Basophils # (A) 0.01 X 10*3/uL (0.00-0.10); Basophils % (A) 0.1 %; Eosinophils # (A) 0 X 10*3/uL (0.04-0.35); Eosinophils % (A) 0 %; HCT 30.3 % (37.2-46.3); HGB 9.8 g/dL (12.0-15.0); Immature Grans, Automated 1.4 %; Lymphocytes # (A) 1.11 X 10*3/uL (0.90-5.00); Lymphocytes % (A) 8.9 %; MCH 31.1 pg (27.0-32.0); MCHC 32.3 g/dL (32.0-37.0); MCV 96.2 fL (80.0-97.0); Mean Platelet Volume 9.4 fL (9.5-12.2); Monocytes # (A) 0.23 X 10*3/uL (0.20-1.00); Monocytes % (A) 1.8 %; NRBC Per 100 WBC 0 /100 WBCS (0.0-0.0); Neutrophils # (A) 10.94 X 10*3/uL (1.80-7.70); Neutrophils % (A) 87.8 %; Platelet Count 690 X 10*3/uL (140-440); RBC 3.15 X 10*6/uL (4.10-5.20); RDW 12.1 % (11.5-14.5); WBC 12.46 X 10*3/uL (4.50-10.00)
[2022-02-25 10:29] LABS: ALT 77 U/L (8-44); AST 51 U/L (13-35); African American GFR (CKD) 106.9 (60.0-200.0); Albumin 3.2 g/dL (3.8-4.9); Albumin/Globulin Ratio 1.28 (1.60-3.17); Alkaline Phosphatase 122 U/L (41-126); BUN/Creat Ratio 15.29 Ratio (12.00-20.00); Blood Urea Nitrogen 10.7 mg/dL (9.0-27.0); Calcium 8.6 mg/dL (8.7-10.3); Carbon Dioxide 23.1 mmol/L (20.0-27.5); Chloride 99 mmol/L (96-109); Globulin 2.5 g/dL (1.6-3.3); Glucose 130 mg/dL (70-110); Non-African American GFR(CKD) 92.2 (60.0-200.0); Potassium 4.5 mmol/L (3.5-5.5); Sodium 142 mmol/L (135-145); Total Bilirubin <0.15 mg/dL (0.30-1.20); Total Protein 5.7 g/dL (6.2-8.2)
[2022-02-25] MEDS: methylPREDNISolone 4 MG TAB TAPER PO SCH (11:03)
[2022-02-25 11:38] LABS: Glucose,Whole Blood 232 mg/dL (75-99)
--- NOTE | 2022-02-25 11:48 | P.PN ---
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 The patient was having also some abdominal discomfort, shaking chills, loose bowel movements and she end up coming into the hospital for further care. The chest x-ray showed a left lower lobe consolidation and small left-sided pleural effusion. CAT scan of the abdomen and pelvis was also done that showed left lower lobe atelectasis/infiltrate with a pleural effusion and small pericardial effusion. Based on that, the patient was diagnosed having a community-acquired pneumonia. The patient was hospitalized and currently the patient on IV antibiotics. The sedimentation rate is at 104. CRP is at 13.1. COVID 19 testing was negative. Influenza screen was negative. The patient was started on a combination of Rocephin and Zithromax. The lactic acid level was at 0.9. Troponin was at 0.01 and a CRP level was at 13. The patient was sent, was at 17.2 with a hemoglobin of 11.3. No previous episodes of pneumonias. No lung history in terms of lung disease. No chronic illnesses. No aspiration. No trauma to the chest. No DVTs or pulmonary embolism. On 02/21/2022 the patient is being seen for a follow-up. The patient is quite nervous and anxious. She is still on room air oxygen. He still having pleuritic chest pain on the left and she is using incentive spirometer. Yesterday she had an event and her blood pressure dropped down to 60/47. This occurred approximately 6 PM yesterday. She immediately recovered and her blood pressure is still actively soft. No significant tachycardia. Most recent blood pressures 107/68.. The patient's oral intake is quite diminished. She is afebrile. Her white cell count is at 14.9 with hemoglobin of 0.5 and the rest of the electrolytes are all within normal limits. The blood cultures of been negative thus far. A repeat in the follow-up chest x-ray was done this morning and a patient has developed a left-sided pleural effusion and a very tiny right- sided pleural effusion. The left-sided pleural effusion is currently moderate in size and there is some residual inflammatory changes and left lung base. Despite all this, the patient does not look toxic at all. Her breathing is not labored. No altered mentation. She is producing adequate amount of urine output. Echocardiogram was obtained and it showed normal findings. Carotid Dopplers were also negative. A CT of the chest and a pulmonary CT angiogram was ordered. 2021, the patient is feeling better. Her pleurisy is still active although it is on the lower pain severity on today's evaluation. She is taking [place] for pain control. Meanwhile, the patient continues to be on examination Rocephin and Zithromax. Based on the events that occurred yesterday, the patient underwent an echocardiogram that showed no acute abnormalities and the Doppler of the carotids also within normal limits. The patient otherwise is using incentive spirometer. She had a low-grade fever 100.8 and currently she is afebrile. A computed tomography scan of the chest was done and showed atelectatic changes and left lung base along with bilateral pleural effusion moderate on the left and small on the right. The patient remains on room air oxygen. She does not look toxic looking. She remains on IV fluids normal salin e at the rate of 75 mL an hour. Discussed the findings with the patient and I recommended an ultrasound-guided thoracentesis of the left lung to be done by interventional radiology. Note that a CAT scan of the chest also showed a small pericardial effusion and this was not seen on the echocardiogram. On today's blood work, the patient has a white cell count of 14.4 with a hemoglobin of 9.3. The BUN is at 5.6 with a creatinine of 0.9 and sodium level of 135. 02/23/2022 patient seen in follow-up on medical surgical floor. She is sitting up in the recliner, has a persistent dry cough, and pleuritic chest discomfort with a deep breathing and coughing. No hemoptysis, she remains on accommodation of Rocephin and azithromycin for acute community-acquired pneumonia. room air pulse ox is 98%. Yesterday's CTA chest showed no evidence of pulmonary embolism, and did show large bilateral pleural effusions left greater than right and bilateral lower lobe atelectasis/infiltrate. interventional radiology was consulted for left-sided thoracentesis, and the pleural fluid culture to be sent for Gram stain and cultures, cytology, and analysis. Patient is scheduled for the procedure some time this afternoon. blood cultures have shown no growth thus far. On 02/24/2022 patient seen in follow-up on medical surgical floor. Yesterday she underwent left-sided thoracentesis, and 0.8 L of serous fluid was removed and sent for cytology analysis and cultures. Pleural fluid analysis reveals total fluid protein of 3.3 g, and LDH of 156, the same time patient's sed rate was quite elevated at 115, CRP was 22.4, BNP was 1580. WOUND WAS 0.20, WHITE BLOOD CELL COUNT IS IMPROVED AND IS DOWN TO 10.7, HEMOGLOBIN IS 9.5, PLATELET COUNT IS 596. PLEURAL FLUID CULTURES HAVE BEEN SENT AND ARE PENDING, GRAM STAIN showing few white blood cells, no organisms. Patient states that her pleuritic chest pain is resolved completely, she reports no hemoptysis, no fever, she still has a headache, she thinks it may be from persistent coughing. There is a suspicion for pleural effusions related to possibility of underlying connective tissue disorder, and a component CHF with diastolic dysfunction. Patient's headache is reported mostly on the left temporal side, and possibility of temporal arteritis is being considered On 02/25/2022 patient seen in follow-up on medical surgical floor. She is sitting up in a chair, she is on room air pulse ox is 98%, afebrile, hemodynamically patient is stable. She states she is breathing much better, her chest pain has completely resolved, she has had no acute events overnight. Yesterday we started the patient on IV steroids with Solu-Medrol 40 mg every 8 h ours for possibility of connective tissue disease related to pleural effusions. Follow-up sed rate is still pending, however connective tissue workup is negative thus far, with negative JOSELYN screen, rheumatoid factor was within normal limits, SSA and SSB antibodies were negative, double-stranded DNA antibody was negative. CK is negative at 40, CRP is 22.4, angiotensin converting enzyme was normal at 19, pro-calcitonin level was improved and is down to 0.09, LDH is 40. Pleural fluid cytology still pending, and cultures are still pending, Gram stain has shown no organisms. Yesterday we gave the patient a dose of IV Lasix for bilateral pleural effusions, and new onset CHF with diastolic dysfunction, patient was placed on maintenance dose oral Lasix 20 mg daily, chest x-ray still showing bilateral pleural effusions larger on the left side which apparently progressed, and left midlung zone linear atelectasis with suspected bilateral basal pulmonary atelectasis. Objective - Vital Signs Vital signs: Vital Signs Temp 98.3 F 02/25/22 08:00 Pulse 84 02/25/22 08:00 Resp 16 02/25/22 08:00 BP 122/73 02/25/22 08:00 Pulse Ox 98 02/25/22 08:00 FiO2 Intake & Output 02/24/22 02/25/22 02/25/22 18:59 06:59 18:59 Intake Total 1080 Balance 1080 Intake: Oral 1080 Other: # Voids 4 3 - Exam GENERAL EXAM: Alert, very pleasant 61-year-old white female, on room air, comfortable in no apparent distress. HEAD: Normocephalic/atraumatic. EYES: Normal reaction of pupils, equal size. Conjunctiva pink, sclera white. NOSE: Clear with pink turbinates. THROAT: No erythema or exudates. NECK: No masses, no JVD, no thyroid enlargement, no adenopathy. CHEST: No chest wall deformity. Symmetrical expansion. LUNGS: Equal air entry with diminished breath sounds bilaterally, with bilateral crackles CVS: Regular rate and rhythm, normal S1 and S2, no gallops, no murmurs, no rubs ABDOMEN: Soft, nontender. No hepatosplenomegaly, normal bowel sounds, no guarding or rigidity. EXTREMITIES: No clubbing, no edema, no cyanosis, 2+ pulses and upper and lower extremities. MUSCULOSKELETAL: Muscle strength and tone normal. SPINE: No scoliosis or deformity SKIN: No rashes CENTRAL NERVOUS SYSTEM: Alert and oriented -3. No focal deficits, tone is normal in all 4 extremities. PSYCHIATRIC: Alert and oriented -3. Appropriate affect. Intact judgment and insight. - Labs CBC & Chem 7: 02/25/22 04:50 02/25/22 04:50 Labs: Abnormal Lab Results - Last 24 Hours (Table) 02/24/22 02/25/22 02/25/22 Range/Units 21:08 04:50 04:50 WBC 12.46 H (4.50-10.00) X 10*3/uL RBC 3.15 L (4.10-5.20) X 10*6/uL Hgb 9.8 L (12.0-15.0) g/dL Hct 30.3 L (37.2-46.3) % Plt Count 690 H (140-440) X 10*3/uL MPV 9.4 L (9.5-12.2) fL Immature Gran # 0.17 H (0.00-0.04) X 10*3/uL Neutrophils # 10.94 H (1.80-7.70) X 10*3/uL Eosinophils # 0 L (0.04-0.35) X 10*3/uL ESR (0-20) mm/hr Anion Gap 19.90 H (10.00-18.00) mmol/L Glucose 130 H (70-110) mg/dL POC Glucose (mg/dL) 153 H (75-99) mg/dL Calcium 8.6 L (8.7-10.3) mg/dL Total Bilirubin <0.15 L (0.30-1.20) mg/dL AST 51 H (13-35) U/L ALT 77 H (8-44) U/L Total Protein 5.7 L (6.2-8.2) g/dL Albumin 3.2 L (3.8-4.9) g/dL Albumin/Globulin Ratio 1.28 L (1.60-3.17) g/dL 02/25/22 02/25/22 02/25/22 Range/Units 07:16 09:07 11:36 WBC (4.50-10.00) X 10*3/uL RBC (4.10-5.20) X 10*6/uL Hgb (12.0-15.0) g/dL Hct (37.2-46.3) % Plt Count (140-440) X 10*3/uL MPV (9.5-12.2) fL Immature Gran # (0.00-0.04) X 10*3/uL Neutrophils # (1.80-7.70) X 10*3/uL Eosinophils # (0.04-0.35) X 10*3/uL ESR 103 H (0-20) mm/hr Anion Gap (10.00-18.00) mmol/L Glucose (70-110) mg/dL POC Glucose (mg/dL) 143 H 232 H (75-99) mg/dL Calcium (8.7-10.3) mg/dL Total Bilirubin (0.30-1.20) mg/dL AST (13-35) U/L ALT (8-44) U/L Total Protein (6.2-8.2) g/dL Albumin (3.8-4.9) g/dL Albumin/Globulin Ratio (1.60-3.17) g/dL Microbiology - Last 24 Hours (Table) 02/19/22 04:37 Blood Culture - Final Blood No Growth after 144 hours 02/19/22 03:50 Blood Culture - Final Blood No Growth after 144 hours 02/23/22 15:05 Gram Stain - Preliminary Pleural Fluid Body Fluid Culture - Preliminary Assessment and Plan Plan: assessment: #1. Acute community acquired pneumonia, of the left lower lobe with a parapneumonic effusion. Follow-up chest x-ray showed worsening and increase in size of the left pleural effusion. CT of the chest showed no pulmonary embolism, but did show bilateral pleural effusions, left greater than right with some compressive atelectatic changes at the left lung base. Patient continues to have pleuritic chest pain on the left. Echocardiogram was within normal limits. Patient status post left-sided thoracentesis would removal of 0.8 L of pleural fluid which is exudative in nature, the possibility of connective tissue disorder related pleural effusions, with a component of CHF, parapneumonic effusion, or malignancy being considered #2. Dyspnea, cough, mild leukocytosis related to the above #3. Pleuritic left-sided chest pain secondary to the above, resolved #4. Diarrhea, likely extrapulmonary manifestation of pneumonia, improved #5. Mild leukocytosis #6. Presyncope, related to hypotension, echocardiogram and carotid Dopplers were within normal limits #7. Bilateral pleural effusions, with the possibility of CHF component with diastolic dysfunction, and and possible connective tissue disorder although the workup has been negative Plan: This chest x-ray has been reviewed still showing bilateral pleural effusions Continue oral dose Lasix, echocardiogram has been noted Follow-up proBNP remains elevated We will consult cardiology for cardiac evaluation in view of elevated proBNP, acute CHF with bilateral pleural effusions Possibility of connective tissue disorder seems to be less likely as the markers for current tissue disorder, back negative We'll await final fluid cytology results and cultures Continue oral diuretics and antibiotics IV steroids can be transitioned to Medrol Dosepak Increase activity as tolerated We'll continue to follow patient's clinical course Number of minutes spent on the visit: [10] Time with Patient: Less than 30
[2022-02-25 12:02] VITALS: BMI 21.4
[2022-02-25 12:31] LABS: C-ANCA <1:20 Titer (<1:20)
--- NOTE | 2022-02-25 13:13 | P.CRDCN ---
History of Present Illness History of present illness: HISTORY OF PRESENTING ILLNESS This is a pleasant 61-year-old female with no significant past medical history. 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 We have been asked to see in consultati on for congestive heart failure. Patient presents emergency department on 02/18/2022 with complaints of left upper abdominal pain, shortness of breath, left chest discomfort, and cough. She states she was at her mothers home helping her last week, she had acute onset of left upper abdominal pain and left shoulder pain. She then began to feel short of breath, diaphoretic and had to lay on the floor. She did not having any chest pain. She did not lose consciousness she states it resolved and She came to the ER for further evaluation. 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 She denies any prior medical history. She has no history of CAD, SC, Stroke, CHF, Diabetes, hypertension. She underwent workup with ultrasound of her gallbladder Multiple sharply marginated liver lesions consistent with hemangiomas. CT of her abdomen and pelvis revealed left lower lobe infiltrate and atelectasis, hypodensity in the right lobe liver nodule enhancement related to hemangioma. Pulmonary was cons ulted and patient has been being treated for community-acquired left lower lobe pneumonia. Patient was noted to have pleural effusions greater on the left, patient underwent left-sided thoracentesis on 02/24 was 0.8 L serous fluid removed. There was a suspicion for congestive heart failure and cardiology was consulted. Patient seen and examined at bedside, no distress. She denies any current sahra rtness of breath. She is on room air 98%. Vital signs are stable. Her chest pain and abdominal pain have resolved. DIAGNOSTICS EKG on admission revealed sinus tachycardia, heart rate 104, nonspecific T-wave abnormalities, T wave inversions in inferior leads. No prior EKG to compare Chest xray 02/25 revealed bilateral pleural effusions, larger on the left side, progressed compared to previous x-ray. Thick left mid lung zone linear atelectasis. Echocardiogram revealed an EF of 6065%, normal wall thickness and systolic function, no obvious regional wall abnormalities, no significant valvular abnormalities CTA on 02/21 revealed no evidence of pulmonary embolism, large bilateral pleural effusions, left greater than right Laboratory reviewed, troponin negative 3, Covid 19 negative, Influenza negative, On admission WBC 17- improved 12, hemoglobin 9.8, platelets 690, sodium 142, potassium 4.5, BUN 10, serum current 0.7, AST 51, pO2 77, proBNP 1460 Current home medications include multivitamin and when necessary Tylenol REVIEW OF SYSTEMS At the time of my exam: Patient symptoms as noted above have resolved. CONSTITUTIONAL: Denies fever or chills. CARDIOVASCULAR: Denies chest pain, shortness of breath, orthopnea, PND or palpitations. RESPIRATORY: Denies cough. GASTROINTESTINAL: Denies abdominal pain, diarrhea, constipation, nausea or vomiting. MUSCULOSKELETAL: Denies myalgias. NEUROLOGIC: Denies numbness, tingling, headache or weakness. ENDOCRINE: Denies fatigue, weight change, polydipsia or polyurina. GENITOURINARY: Denies burning, hematuria or urgency with micturation. HEMATOLOGIC: Denies history of anemia or bleeding. PHYSICAL EXAMINATION Blood pressure 122/73, heart rate 84, afebrile, oxygen saturation 98% room air CONSTITUTIONAL: No apparent distress. HEENT: Head is normocephalic. Pupils are equal, round. Sclerae anicteric. Mucous membranes of the mouth are moist. No JVD. No carotid bruit. CHEST EXAMINATION: Lungs are diminished bilaterally, crackles noted in bases to auscultation. No chest wall tenderness is noted on palpation or with deep breathing. HEART EXAMINATION: Regular rate and rhythm. S1, S2 heard. No murmurs, gallops or rub. ABDOMEN: Soft, nontender. Positive bowel sounds. EXTREMITIES: 2+ peripheral pulses, no lower extremity edema and no calf tenderness. NEUROLOGIC EXAMINATION: Patient is awake, alert and oriented x3. ASSESSMENT Left lower lobe pneumonia Bilateral pleural effusions, greater on Left Status post left sided thoracentesis 02/24/22 with 0.8L removed Leukocytosis Shortness of breath, Cough Pre-syncopal episode, likely vasovagal Hypotension, improved with IV fluids Left upper abdominal pain and left pleural chest pain, improved PLAN From a cardiology perspective patient does not appear to have congestive heart failure. We will repeat Echo to evaluate for possible pericardial effusion and re-assess LV. Would hold off on starting Lasix at this times. We will continue to follow patient and make recommendations accordingly. Nurse practitioner note has been reviewed by physician. Signing provider agrees with the documented findings, assessment, and plan of care. Past Medical History Past Medical History: No Reported History History of Any Multi-Drug Resistant Organisms: None Reported Past Surgical History: Tonsillectomy Past Anesthesia/Blood Transfusion Reactions: No Reported Reaction Past Psychological History: No Psychological Hx Reported Smoking Status: Never smoker Past Alcohol Use History: None Reported Past Drug Use History: None Reported - Past Family History Mother Family Medical History: Hypertension Medications and Allergies Home Medications Medication Instructions Recorded Confirmed Type Acetaminophen/Diphenhydramine 1 tab PO HS PRN 02/18/22 02/18/22 History [Tylenol PM 500-25mg] Multivitamins, Thera [Multivitamin 1 tab PO DAILY 02/18/22 02/18/22 History (formulary)] Allergies Allergy/AdvReac Type Severity Reaction Status Date / Time No Known Allergies Allergy Verified 02/18/22 16:57 Physical Exam Vitals: Vital Signs Temp Pulse Resp BP Pulse Ox 02/25/22 08:00 98.3 F 84 16 122/73 98 02/25/22 02:00 98.2 F 77 18 114/74 96 02/24/22 20:00 98.4 F 88 18 137/82 93 L 02/24/22 14:05 99.1 F 101 H 16 133/77 94 L Intake and Output 02/24/22 02/25/22 02/25/22 22:59 06:59 14:59 Intake Total 1080 Balance 1080 Intake: Oral 1080 Other: # Voids 4 3 Results 02/25/22 04:50 02/25/22 04:50 Cardiac Enzymes 02/25/22 02/25/22 Range/Units 04:50 09:07 AST 51 H (13-35) U/L Troponin I <0.012 (0.000-0.034) ng/mL CBC 02/25/22 Range/Units 04:50 WBC 12.46 H (4.50-10.00) X 10*3/uL RBC 3.15 L (4.10-5.20) X 10*6/uL Hgb 9.8 L (12.0-15.0) g/dL Hct 30.3 L (37.2-46.3) % Plt Count 690 H (140-440) X 10*3/uL Comprehensive Metabolic Panel 02/25/22 Range/Units 04:50 Sodium 142 (135-145) mmol/L Potassium 4.5 (3.5-5.5) mmol/L Chloride 99 (96-109) mmol/L Carbon Dioxide 23.1 (20.0-27.5) mmol/L BUN 10.7 (9.0-27.0) mg/dL Creatinine 0.7 (0.6-1.5) mg/dL Glucose 130 H (70-110) mg/dL Calcium 8.6 L (8.7-10.3) mg/dL AST 51 H (13-35) U/L ALT 77 H (8-44) U/L Alkaline Phosphatase 122 (41-126) U/L Total Protein 5.7 L (6.2-8.2) g/dL Albumin 3.2 L (3.8-4.9) g/dL Current Medications Generic Name Dose Route Start Last Admin Trade Name Freq PRN Reason Stop Dose Admin Acetaminophen 650 mg 02/18/22 23:04 02/24/22 23:02 Acetaminophen Tab 325 Mg Tab PO 650 mg Q6HR PRN Administration Mild Pain or Fever > 100.5 Acetaminophen 500 mg 02/21/22 21:00 02/25/22 06:00 Acetaminophen Tab 500 Mg Tab PO 500 mg HS PRN Administration SLEEP/PAIN Hydrocodone Bitart/Acetaminophen 1 each 02/18/22 23:04 02/23/22 20:28 Hydrocodone/Apap 5-325mg 1 Each Tab PO 1 each Q4HR PRN Administration Moderate Pain Benzocaine/Menthol 1 each 02/19/22 15:35 02/20/22 08:25 Benzocaine/Menthol Lozeng 1 Each Lozenge MUCOUS MEM 1 each Q4HR PRN Administration Cough Diphenhydramine HCl 25 mg 02/21/22 21:00 Diphenhydramine 25 Mg Cap PO HS PRN SLEEP/PAIN Docusate Sodium 100 mg 02/22/22 09:00 02/25/22 08:17 Docusate 100 Mg Cap PO Not Given BID STEPHANIE Furosemide 20 mg 02/25/22 09:00 02/25/22 08:25 Furosemide 20 Mg Tab PO 20 mg DAILY STEPHANIE Administration Guaifenesin/Codeine Phosphate 10 ml 02/20/22 09:32 02/24/22 07:39 Guaifenesin-Coden 100-10mg/5ml 10 Ml Cup PO 10 ml Q6HR PRN Administration Cough Heparin Sodium (Porcine) 5,000 unit 02/19/22 08:00 02/25/22 08:16 Heparin Sodium,Porcine/Pf 5,000 Unit/0.5 Ml Syringe SQ Not Given Q8HR STEPHANIE Sodium Chloride 1,000 mls @ 20 mls/hr 02/21/22 11:00 02/24/22 20:29 Saline 0.9% IV 20 mls/hr .Q24H STEPHANIE Administration Ceftriaxone Sodium 1 gm/ 50 mls @ 100 mls/hr 02/22/22 21:00 02/25/22 00:05 Sodium Chloride IVPB 100 mls/hr HS STEPHANIE Administration Protocol Insulin Aspart 0 unit 02/24/22 21:00 02/25/22 08:21 Insulin Aspart (Novolog) 100 Unit/Ml Vial SQ Not Given ACHS STPEHANIE Protocol Methylprednisolone 24 mg 02/25/22 10:30 Methylprednisolone 4 Mg Tab Taper PO 03/03/22 10:29 DAILY STEPHANIE Taper Miscellaneous Information 1 each 02/18/22 21:46 Pneumonia Protocol Utilized 1 Each Misc PO ONCE PRN Per Protocol Multivitamins 1 each 02/22/22 09:00 02/25/22 08:19 Multivitamins, Thera 1 Each Tab PO Not Given DAILY STEPHANIE Naloxone HCl 0.2 mg 02/18/22 23:04 Naloxone 0.4 Mg/Ml 1 Ml Vial IV Q2M PRN Opioid Reversal Ondansetron HCl 4 mg 02/18/22 23:04 Ondansetron 4 Mg/2 Ml Vial IVP Q8HR PRN Nausea And Vomiting Oxycodone/Acetaminophen 1 each 02/18/22 23:04 Oxycodone-Apap 5-325mg 1 Each Tab PO Q4HR PRN Severe Pain Pantoprazole Sodium 40 mg 02/24/22 17:45 02/25/22 08:25 Pantoprazole 40 Mg/10 Ml Vial IVP 40 mg DAILY STEPHANIE Administration Intake and Output 02/24/22 02/25/22 02/25/22 22:59 06:59 14:59 Intake Total 1080 Balance 1080 Intake: Oral 1080 Other: # Voids 4 3 02/25/22 04:50 02/25/22 04:50
[2022-02-25] MEDS: SODIUM CHLORIDE 0.9% 1,000 ML IV SCH (14:51)
--- NOTE | 2022-02-25 16:09 | P.PN ---
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 Patient had initially been admitted on 02/18/2022 to [facility] physicians. Patient's care/admitting physician is being transferred over to Dr. Jimenez, this morning 02/24/22, per patient's requests and patient will follow-up outpatient with Dr. Jimenez as well. Chest CTA reported no evidence of PE but large bilateral pleural effusions left greater than right. Patient underwent a left thoracentesis yesterday with 0.8 L of serous fluid removed. Tolerated procedure well. Pleural fluid cultures pending. Pleural fluid with total protein 3310, fluid LDH 156. Good air entry, maintaining O2 sats of 100% on room air. Prior CT reported small pericardial effusion. Echo performed reporting normal EF, 60-65% with no significant valvular abnormality. Troponins negative 2. ProBNP 1580.Carotid Doppler reported no significant s tenosis of the common or internal carotid arteries bilaterally. T-max 100.7, WBC trending down, nearly normalized at 10.7. Blood cultures reporting no growth. Hemoglobin 9.5, platelets 596, renal function stable, electrolytes within normal limits, CRP increased to 22.4. Denies chest pain, palpitations or increased shortness of breath. Nonproductive cough. Maintained on IV antibiotics of Zithromax, Rocephin, along with systemic steroids. 02/25/2022 steroids initiated yesterday, sitting up in chair, feeling better this morning. Maintaining O2 sats in the high 90s on room air. Intermittent nonproductive cough. Denies pleuritic chest pain. Denies palpitations, denies increased shortness of breath. Chest x-ray reports bilateral pleural effusions larger on the left side, apparently progressed compared to prior x-ray, thick left midlung zone linear atelectasis with suspected bilateral basal pulmonary atelectasis .Afebrile, WBC 12.46. AST, ALT mildly elevated, 51,77. Consuming 5 0-75%, denies nausea ,vomiting. LDH normal,Pro-calcitonin 0.09, ESR trending down but remains elevated at 103. Connective tissue disease workup /Immunology panel noted, currently negative. Objective - Vital Signs Vital signs: Vital Signs Temp 97.9 F 02/25/22 14:00 Pulse 87 02/25/22 14:00 Resp 16 02/25/22 14:00 BP 122/69 02/25/22 14:00 Pulse Ox 96 02/25/22 14:00 FiO2 Intake & Output 02/24/22 02/25/22 02/25/22 18:59 06:59 18:59 Intake Total 1080 Balance 1080 Weight 56.699 kg Intake: Oral 1080 Other: # Voids 4 3 - Exam PHYSICAL EXAM: VITAL SIGNS: [As above] GENERAL: Alert and oriented 3, sitting up in chair, no acute distress. Significant other at bedside. HEENT: Conjunctivae normal. eyes normal. NECK: Supple, No JVD. CARDIOVASCULAR: S1, S2 regular.. No murmur RESPIRATION: Equal air entry ,Breath sounds diminished in the bases, fine bibasilar crackles. ABDOMEN: Soft, nontender . No guarding. no masses palpable. No ascites, No hepatosplenomegaly.Bowel sounds heard. LEGS: No edema. no swelling NERVOUS SYSTEM: Cranial N 2-12 grossly normal. No focal deficits. Strength and sensation grossly intact. Skin: Warm and dry, no rash Microbiology 02/19/22 04:37 Blood Blood Culture - Final No Growth after 144 hours 02/19/22 03:50 Blood Blood Culture - Final No Growth after 144 hours 02/23/22 15:05 Pleural Fluid Gram Stain - Preliminary 02/23/22 15:05 Pleural Fluid Body Fluid Culture - Preliminary - Labs CBC & Chem 7: 02/25/22 04:50 02/25/22 04:50 Labs: Abnormal Lab Results - Last 24 Hours (Table) 02/24/22 02/25/22 02/25/22 Range/Units 21:08 04:50 04:50 WBC 12.46 H (4.50-10.00) X 10*3/uL RBC 3.15 L (4.10-5.20) X 10*6/uL Hgb 9.8 L (12.0-15.0) g/dL Hct 30.3 L (37.2-46.3) % Plt Count 690 H (140-440) X 10*3/uL MPV 9.4 L (9.5-12.2) fL Immature Gran # 0.17 H (0.00-0.04) X 10*3/uL Neutrophils # 10.94 H (1.80-7.70) X 10*3/uL Eosinophils # 0 L (0.04-0.35) X 10*3/uL ESR (0-20) mm/hr Anion Gap 19.90 H (10.00-18.00) mmol/L Glucose 130 H (70-110) mg/dL POC Glucose (mg/dL) 153 H (75-99) mg/dL Calcium 8.6 L (8.7-10.3) mg/dL Total Bilirubin <0.15 L (0.30-1.20) mg/dL AST 51 H (13-35) U/L ALT 77 H (8-44) U/L Total Protein 5.7 L (6.2-8.2) g/dL Albumin 3.2 L (3.8-4.9) g/dL Albumin/Globulin Ratio 1.28 L (1.60-3.17) g/dL 02/25/22 02/25/22 02/25/22 Range/Units 07:16 09:07 11:36 WBC (4.50-10.00) X 10*3/uL RBC (4.10-5.20) X 10*6/uL Hgb (12.0-15.0) g/dL Hct (37.2-46.3) % Plt Count (140-440) X 10*3/uL MPV (9.5-12.2) fL Immature Gran # (0.00-0.04) X 10*3/uL Neutrophils # (1.80-7.70) X 10*3/uL Eosinophils # (0.04-0.35) X 10*3/uL ESR 103 H (0-20) mm/hr Anion Gap (10.00-18.00) mmol/L Glucose (70-110) mg/dL POC Glucose (mg/dL) 143 H 232 H (75-99) mg/dL Calcium (8.7-10.3) mg/dL Total Bilirubin (0.30-1.20) mg/dL AST (13-35) U/L ALT (8-44) U/L Total Protein (6.2-8.2) g/dL Albumin (3.8-4.9) g/dL Albumin/Globulin Ratio (1.60-3.17) g/dL Microbiology - Last 24 Hours (Table) 02/19/22 04:37 Blood Culture - Final Blood No Growth after 144 hours 02/19/22 03:50 Blood Culture - Final Blood No Growth after 144 hours 02/23/22 15:05 Gram Stain - Preliminary Pleural Fluid Body Fluid Culture - Preliminary Assessment and Plan Assessment: Sepsis secondary to Acute left lower lobe community-acquired pneumonia, with a parapneumonic effusion. Status post left sided thoracentesis, cytology reporting negative for malignancy Bilateral pleural effusions, possible acute CHF with diastolic dysfunction; elevated sed rate. Connective tissue workup negative. Pleuritic chest pain secondary to all the above, resolved Near-syncope related to the above Plans: Continue on current medication regime ,monitoring and symptomatic treatment. Maintain IV antibiotics, steroids. Pleural cytology reporting negative for malignancy ,connective tissue disorder work up/markers negative thus far. Sed rate elevated, pleural fluid is exudative , cardiology consulted for potential CHF. Increase ambulation as tolerated. The impression and plan of care has been dictated as directed. : I performed a history and examination of this patient, discussed the same with the dictator. I agree with the dictator's note ,documented as a scribe. Any additional findings or plans will be noted.
[2022-02-25 16:49] LABS: Glucose,Whole Blood 126 mg/dL (70-110)
[2022-02-25 21:04] LABS: Glucose,Whole Blood 162 mg/dL (70-110)
[2022-02-26 06:52] LABS: Glucose,Whole Blood 100 mg/dL (70-110)
[2022-02-26 07:12] VITALS: BP 125/72; PULSE 80; RESP 18; TEMP 97.6
[2022-02-26] MEDS: INSULIN ASPART (NovoLOG) 100 UNIT/ML VIAL SQ SCH ×2 (07:28→12:25)
[2022-02-26] MEDS: DOCUSATE 100 MG CAP PO SCH (08:15)
[2022-02-26] MEDS: MULTIVITAMINS, THERA 1 EACH TAB PO SCH (08:15)
[2022-02-26] MEDS: HEPARIN SODIUM,PORCINE/PF 5,000 UNIT/0.5 ML SYRINGE SQ SCH (08:15)
--- NOTE | 2022-02-26 08:17 | CA ---
Transthoracic Echo Report Name: Estefany Graham Age: 61 Gender: F : 1960 Exam Date: 02/25/2022 13:48 Exam Location: [facility] Ht (in): 64 Wt (lb): 25 Ordering Physician: Mariah Martinez Attending/Referring Phys: Hydro Excavation Operator Sandra Figueroa, ERNESTO Procedure CPT: Indications: Repeat evaluate if new pericardial effusion LV Technical Quality: Good Contrast 1: Total Dose (mL): Contrast 2: Total Dose (mL): MEASUREMENTS (Male / Female) Normal Values DOPPLER TR Peak Velocity 302.8 cm/s TR Peak Gradient 36.7 mmHg Right Ventricular Systolic Press 41.7 mmHg FINDINGS Left Ventricle Normal Left ventricular size, wall thickness, systolic function with no obvious regional wall motion abnormalities. Ejection fraction is 55-60% Right Ventricle Right Atrium Left Atrium Mitral Valve Aortic Valve Tricuspid Valve Pulmonic Valve Pericardium No pericardial effusion. No pleural effusion is evident. Aorta CONCLUSIONS Normal LV size and systolic function without any wall motion abnormalities. No pericardial effusion. Previewed by: Dr. Gil Ross MD (Electronically Signed) Final Date: 26 February 2022 08:16
[2022-02-26] MEDS: PANTOPRAZOLE 40 MG/10 ML VIAL IVP SCH (08:21)
--- NOTE | 2022-02-26 08:34 | XR ---
EXAMINATION TYPE: XR chest 1V portable DATE OF EXAM: 02/26/2022 COMPARISON: X-ray dated 02/25/2022 HISTORY: Pleural effusion TECHNIQUE: Single frontal view of the chest is obtained. FINDINGS: Smaller left-sided pleural effusion. Stable small right-sided pleural effusion. Smaller atelectasis i n the left midlung zone. Unchanged cardiomediastinal silhouette and bony thoracic cage. IMPRESSION: Interval changes as described above.
[2022-02-26] MEDS: methylPREDNISolone 4 MG TAB TAPER PO SCH (08:44)
[2022-02-26 11:56] LABS: Glucose,Whole Blood 130 mg/dL (70-110)
--- NOTE | 2022-02-26 14:32 | P.PN ---
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 The patient was having also some abdominal discomfort, shaking chills, loose bowel movements and she end up coming into the hospital for further care. The chest x-ray showed a left lower lobe consolidation and small left-sided pleural effusion. CAT scan of the abdomen and pelvis was also done that showed left lower lobe atelectasis/infiltrate with a pleural effusion and small pericardial effusion. Based on that, the patient was diagnosed having a community-acquired pneumonia. The patient was hospitalized and currently the patient on IV antibiotics. The sedimentation rate is at 104. CRP is at 13.1. COVID 19 testing was negative. Influenza screen was negative. The patient was started on a combination of Rocephin and Zithromax. The lactic acid level was at 0.9. Troponin was at 0.01 and a CRP level was at 13. The patient was sent, was at 17.2 with a hemoglobin of 11.3. No previous episodes of pneumonias. No lung history in terms of lung disease. No chronic illnesses. No aspiration. No trauma to the chest. No DVTs or pulmonary embolism. On 02/21/2022 the patient is being seen for a follow-up. The patient is quite nervous and anxious. She is still on room air oxygen. He still having pleuritic chest pain on the left and she is using incentive spirometer. Yesterday she had an event and her blood pressure dropped down to 60/47. This occurred approximately 6 PM yesterday. She immediately recovered and her blood pressure is still actively soft. No significant tachycardia. Most recent blood pressures 107/68.. The patient's oral intake is quite diminished. She is afebrile. Her white cell count is at 14.9 with hemoglobin of 0.5 and the rest of the electrolytes are all within normal limits. The blood cultures of been negative thus far. A repeat in the follow-up chest x-ray was done this morning and a patient has developed a left-sided pleural effusion and a very tiny right- sided pleural effusion. The left-sided pleural effusion is currently moderate in size and there is some residual inflammatory changes and left lung base. Despite all this, the patient does not look toxic at all. Her breathing is not labored. No altered mentation. She is producing adequate amount of urine output. Echocardiogram was obtained and it showed normal findings. Carotid Dopplers were also negative. A CT of the chest and a pulmonary CT angiogram was ordered. 2021, the patient is feeling better. Her pleurisy is still active although it is on the lower pain severity on today's evaluation. She is taking [place] for pain control. Meanwhile, the patient continues to be on examination Rocephin and Zithromax. Based on the events that occurred yesterday, the patient underwent an echocardiogram that showed no acute abnormalities and the Doppler of the carotids also within normal limits. The patient otherwise is using incentive spirometer. She had a low-grade fever 100.8 and currently she is afebrile. A computed tomography scan of the chest was done and showed atelectatic changes and left lung base along with bilateral pleural effusion moderate on the left and small on the right. The patient remains on room air oxygen. She does not look toxic looking. She remains on IV fluids normal salin e at the rate of 75 mL an hour. Discussed the findings with the patient and I recommended an ultrasound-guided thoracentesis of the left lung to be done by interventional radiology. Note that a CAT scan of the chest also showed a small pericardial effusion and this was not seen on the echocardiogram. On today's blood work, the patient has a white cell count of 14.4 with a hemoglobin of 9.3. The BUN is at 5.6 with a creatinine of 0.9 and sodium level of 135. 02/23/2022 patient seen in follow-up on medical surgical floor. She is sitting up in the recliner, has a persistent dry cough, and pleuritic chest discomfort with a deep breathing and coughing. No hemoptysis, she remains on accommodation of Rocephin and azithromycin for acute community-acquired pneumonia. room air pulse ox is 98%. Yesterday's CTA chest showed no evidence of pulmonary embolism, and did show large bilateral pleural effusions left greater than right and bilateral lower lobe atelectasis/infiltrate. interventional radiology was consulted for left-sided thoracentesis, and the pleural fluid culture to be sent for Gram stain and cultures, cytology, and analysis. Patient is scheduled for the procedure some time this afternoon. blood cultures have shown no growth thus far. On 02/24/2022 patient seen in follow-up on medical surgical floor. Yesterday she underwent left-sided thoracentesis, and 0.8 L of serous fluid was removed and sent for cytology analysis and cultures. Pleural fluid analysis reveals total fluid protein of 3.3 g, and LDH of 156, the same time patient's sed rate was quite elevated at 115, CRP was 22.4, BNP was 1580. WOUND WAS 0.20, WHITE BLOOD CELL COUNT IS IMPROVED AND IS DOWN TO 10.7, HEMOGLOBIN IS 9.5, PLATELET COUNT IS 596. PLEURAL FLUID CULTURES HAVE BEEN SENT AND ARE PENDING, GRAM STAIN showing few white blood cells, no organisms. Patient states that her pleuritic chest pain is resolved completely, she reports no hemoptysis, no fever, she still has a headache, she thinks it may be from persistent coughing. There is a suspicion for pleural effusions related to possibility of underlying connective tissue disorder, and a component CHF with diastolic dysfunction. Patient's headache is reported mostly on the left temporal side, and possibility of temporal arteritis is being considered On 02/25/2022 patient seen in follow-up on medical surgical floor. She is sitting up in a chair, she is on room air pulse ox is 98%, afebrile, hemodynamically patient is stable. She states she is breathing much better, her chest pain has completely resolved, she has had no acute events overnight. Yesterday we started the patient on IV steroids with Solu-Medrol 40 mg every 8 h ours for possibility of connective tissue disease related to pleural effusions. Follow-up sed rate is still pending, however connective tissue workup is negative thus far, with negative JOSELYN screen, rheumatoid factor was within normal limits, SSA and SSB antibodies were negative, double-stranded DNA antibody was negative. CK is negative at 40, CRP is 22.4, angiotensin converting enzyme was normal at 19, pro-calcitonin level was improved and is down to 0.09, LDH is 40. Pleural fluid cytology still pending, and cultures are still pending, Gram stain has shown no organisms. Yesterday we gave the patient a dose of IV Lasix for bilateral pleural effusions, and new onset CHF with diastolic dysfunction, patient was placed on maintenance dose oral Lasix 20 mg daily, chest x-ray still showing bilateral pleural effusions larger on the left side which apparently progressed, and left midlung zone linear atelectasis with suspected bilateral basal pulmonary atelectasis. On 02/26/2022 patient seen in follow-up on medical surgical floor. Pleural fluid cytology came back negative for malignancy, pleural fluid cultures have shown no microbial growth thus far, blood cultures have been negative. Vital signs are stable, no fever or chills, her pleuritic chest pain has completely resolved. Patient was given diuretics, and repeat echocardiogram has been completed showing improving left-sided pleural effusion, and stable small right- sided pleural effusion and atelectasis in the left midlung zone. Discussed case with cardiology who did not feel the patient did not have CHF. Repeat echocard iogram showed ejection fraction of 55-60%, no wall motion abnormalities, no pericardial effusion. Patient remains on Rocephin for empiric antibiotic coverage, so far all cultures have been negative. Connective tissue workup has been negative. Clinically patient stable, she is ambulating about the room, she has no specific complaints. Objective - Vital Signs Vital signs: Vital Signs Temp 97.6 F 02/26/22 07:06 Pulse 80 02/26/22 07:06 Resp 18 02/26/22 07:06 BP 125/72 02/26/22 07:06 Pulse Ox 98 02/26/22 08:44 FiO2 Intake & Output 02/25/22 02/26/22 02/26/22 18:59 06:59 18:59 Intake Total 296 Balance 296 Weight 56.699 kg Intake: Oral 296 Other: # Voids 3 - Exam GENERAL EXAM: Alert, very pleasant 61-year-old white female, on room air, comfortable in no apparent distress. HEAD: Normocephalic/atraumatic. EYES: Normal reaction of pupils, equal size. Conjunctiva pink, sclera white. NOSE: Clear with pink turbinates. THROAT: No erythema or exudates. NECK: No masses, no JVD, no thyroid enlargement, no adenopathy. CHEST: No chest wall deformity. Symmetrical expansion. LUNGS: Equal air entry with diminished breath sounds bilaterally, with bilateral crackles CVS: Regular rate and rhythm, normal S1 and S2, no gallops, no murmurs, no rubs ABDOMEN: Soft, nontender. No hepatosplenomegaly, normal bowel sounds, no gu arding or rigidity. EXTREMITIES: No clubbing, no edema, no cyanosis, 2+ pulses and upper and lower e xtremities. MUSCULOSKELETAL: Muscle strength and tone normal. SPINE: No scoliosis or deformity SKIN: No rashes CENTRAL NERVOUS SYSTEM: Alert and oriented -3. No focal deficits, tone is normal in all 4 extremities. PSYCHIATRIC: Alert and oriented -3. Appropriate affect. Intact judgment and insight. - Labs CBC & Chem 7: 02/25/22 04:50 02/25/22 04:50 Labs: Abnormal Lab Results - Last 24 Hours (Table) 02/25/22 02/25/22 02/26/22 Range/Units 16:46 21:02 11:50 POC Glucose (mg/dL) 126 H 162 H 130 H (70-110) mg/dL Microbiology - Last 24 Hours (Table) 02/23/22 15:05 Gram Stain - Preliminary Pleural Fluid Body Fluid Culture - Preliminary Assessment and Plan Plan: assessment: #1. Acute community acquired pneumonia, of the left lower lobe with a parapneumonic effusion. Follow-up chest x-ray showed worsening and increase in size of the left pleural effusion. CT of the chest showed no pulmonary embolism, but did show bilateral pleural effusions, left greater than right with some compressive atelectatic changes at the left lung base. Patient continues to have pleuritic chest pain on the left. Echocardiogram was within normal limits. Patient status post left-sided thoracentesis would removal of 0.8 L of pleural fluid which is exudative in nature, the possibility of connective tissue disorder related pleural effusions, with a component of CHF, parapneumonic effusion, or malignancy being considered. Connective tissue workup has been negative thus far, Fady level was negative, pro-calcitonin level was negative, patient was reevaluated by cardiology who feels the patient has no evidence of CHF #2. Dyspnea, cough, mild leukocytosis related to the above #3. Pleuritic left-sided chest pain secondary to the above, resolved #4. Diarrhea, likely extrapulmonary manifestation of pneumonia, improved #5. Mild leukocytosis #6. Presyncope, related to hypotension, echocardiogram and carotid Dopplers were within normal limits #7. Bilateral pleural effusions, with the possibility of CHF component with diastolic dysfunction, and and possible connective tissue disorder although the workup has been negative Plan: Case was discussed with cardiology Repeat echocardiogram has been noted Pleural fluid cytology was negative for malignancy, or any microbial growth Patient has completed a course of antibiotics Repeat pro-calcitonin level is negative at 0.09 She is breathing much easier, no fever or chills, We'll discontinue the Rocephin Connective tissue workup has been negative making a possibility of underlying connective tissue disorder less likely However in view of her elevated sed rate, we still do recommend outpatient consultation with a senior instrumentation engineer From pulmonary perspective she stable for discharge home We do recommend Lasix 20 mg every other day after discharge She can complete Medrol Dosepak Outpatient follow-up with Dr. Gomez in the office in 7-10 days Number of minutes spent on the visit: [10] Time with Patient: Less than 30
--- NOTE | 2022-02-26 14:56 | PN ---
PROGRESS NOTE Mrs Varela had an echo performed yesterday which revealed normal systolic function. No evidence of diastolic dysfunction and no pericardial effusion. Findings reviewed reassured. There is no cardiac etiology for her presentation. She probably has a pneumonia and concomitant pleural effusion and pleuritis and also had some vasovagal episode while in the hospital. I do not believe we are dealing with active cardiac problem. Discussed with the patient. Physical exam is unchanged. Vital signs are stable. I will see her as needed. Mr. waller is a gentleman history of CAD, prior PCI and also paroxysmal atrial fib, came in after a fall, has a fracture of his spine is going for surgery and also he has had a fracture of his right wrist. I saw him today. Surgery is later on today. Echo was performed. Ejection fraction is about 45% to 50% with global decrease in contractility. Both atria are enlarged. There is mild my mild to moderate mitral regurgitation and also mild tricuspid regurgitation without pulmonary hypertension. Patient can go for the surgery. Risk is moderate to high. No contraindication Xarelto has been held since yesterday. Vitals are stable JVD is not evident S1-S2 heard normally short systolic murmur noted lungs revealed decent air entry abdomen looks exam unchanged plan is to continue current medications advised cautious fluid administration. Optimal BP control perioperatively. The patient can be the patient can proceed with surgery prognosis. Risk is moderate. Prognosis is guarded patient is [facility] and now [facility] #[id number]. This lady underwent surgery of her left shoulder intramedullary nail the successfully. She is doing well. Her Plavix can be resumed as soon as okayed by orthopedic surgeon. No cardiac issues. She is comfortable resting. Has had stenting about 2 months ago. Stable no JVD S1, S2 heard normally short systolic murmur noted lungs are clear abdomen looks exam unchanged plan is to continue current medications. Resume Plavix of once okayed by orthopedic surgeon. We will continue to see the patient as needed. the progress note on [facility] #[id number]. I was asked to see the patient mainly because of a question on her rhythm strips. I reviewed the rhythm strips, but patient was not in the room. The rhythm strips suggest artifact. There is no evidence of any ventricular tachycardia. Her electrolytes are normal. Patient can be transferred to [facility] without any issue. I will see her if she is available in the room. This was explained to the nurse and we left a message for Dr. An thank you. GENNA / TARA: [id number] /
--- NOTE | 2022-02-26 14:57 | P.DS ---
Providers Date of admission: 02/18/22 22:48 Expected date of discharge: 02/26/22 Attending physician: Pancho Jimenez Consults: 02/20/22 09:33 Consult Physician Routine Consulting Provider: Danica Frost Consult Reason/Comments: Pneumonia with parapneumonic effusion/empyema Do you want consulting provider notified?: Yes 02/25/22 10:07 Consult Physician Routine Consulting Provider: Cem Carson Consult Reason/Comments: New onset CHF Do you want consulting provider notified?: Yes Primary care physician: Stated None Hospital Course: Final Diagnoses: Sepsis secondary to Acute left lower lobe community-acquired pneumonia, with a parapneumonic effusion. Status post left sided thoracentesis, cytology reporting negative for malignancy Bilateral pleural effusions, possible mild acute CHF with diastolic dysfunction- Cardiology ruled out.; elevated sed rate perisists, trending down. Connective tissue workup negative. 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 Patient had initially been admitted on 02/18/2022 to [facility]. Patient's care/admitting physician is being transferred over to Dr. Jimenez, this morning 02/24/22, per patient's requests and patient will follow-up outpatient with Dr. Jimenez as well. Chest CTA reported no evidence of PE but large bilateral pleural effusions left greater than right. Patient underwent a left thoracentesis yesterday with 0.8 L of serous fluid removed. Tolerated procedure well. Pleural fluid cultures pending. Pleural fluid with total protein 3310, fluid LDH 156. Good air entry, maintaining O2 sats of 100% on room air. Prior CT reported small pericardial effusion. Echo performed reporting normal EF, 60-65% with no significant valvular abnormality. Troponins negative 2. ProBNP 1580.Carotid Doppler reported no significant stenosis of the common or internal carotid arteries bilaterally. T-max 100.7, WBC trending down, nearly normalized at 10.7. Blood cultures reporting no growth. Hemoglobin 9.5, platelets 596, renal function stable, electrolytes within normal limits, CRP increased to 22.4. Denies chest pain, palpitations or increased shortness of breath. Nonproductive cough. Maintained on IV antibiotics of Zithromax, Rocephin, along with systemic steroids. 02/25/2022 steroids initiated yesterday, sitting up in chair, feeling better this morning. Maintaining O2 sats in the high 90s on room air. Intermittent nonproductive cough. Denies pleuritic chest pain. Denies palpitations, denies increased shortness of breath. Chest x-ray reports bilateral pleural effusions larger on the left side, apparently progressed compared to prior x-ray, thick left midlung zone linear atelectasis with suspected bilateral basal pulmonary atelectasis .Afebrile, WBC 12.46. AST, ALT mildly elevated, 51,77. Consuming 50-75%, denies nausea ,vomiting. LDH normal,Pro-calcitonin 0.09, ESR trending down but remains elevated at 103. Connective tissue disease workup /Immunology panel noted, currently negative. Maintained on IV antibiotics, steroids. Denies chest pain, palpitations or shortness of breath. Ambulating, tolerating exertion well. Denies lightheadedness dizziness or focal deficits. Afebrile, maintaining O2 sats in the high 90s on room air. Pleural cytology reporting negative for malignancy ,connective tissue disorder work up/markers negative thus far. Sed rate elevated, pleural fluid is exudative , cardiology consulted for potential CHF. Evaluated by cardiology, repeat echo reported normal LV size and systolic function without any wall motion abnormalities, no pericardial effusion. Not CHF as per cardiology .Significant clinical improvement. Though connective tissue workup negative at this point, sed rate remains elevated and pulmonary recommending further follow-up with a exhibitions curator. Preliminary pleural fluid cultures negative. Blood cultures negative. Antibiotic therapy completed as per cardiology. Patient will be discharged on Lasix 20 mg every other day, Medrol Dosepak and Pepcid. Patient will be discharged home today in a stable condition with guarded prognosis. The impression and plan of care has been dictated as directed. : I performed a history and examination of this patient, discussed the same with the dictator. I agree with the dictator's note ,documented as a scribe. Any additional findings or plans will be noted. Patient Condition at Discharge: Stable Plan - Discharge Summary Discharge Rx Participant: No New Discharge Prescriptions: New methylPREDNISolone Dose Pack [Medrol Dose Pack] 4 mg PO DIRECTED #21 tab Furosemide [Lasix] 20 mg PO Q48H #15 tab Famotidine [Pepcid] 20 mg PO BID #20 tablet No Action Acetaminophen/Diphenhydramine [Tylenol PM 500-25mg] 1 tab PO HS PRN PRN Reason: SLEEP/PAIN Multivitamins, Thera [Multivitamin (formulary)] 1 tab PO DAILY Discharge Medication List Acetaminophen/Diphenhydramine [Tylenol PM 500-25mg] 1 tab PO HS PRN 02/18/22 [History] Multivitamins, Thera [Multivitamin (formulary)] 1 tab PO DAILY 02/18/22 [History] Famotidine [Pepcid] 20 mg PO BID #20 tablet 02/26/22 [Rx] Furosemide [Lasix] 20 mg PO Q48H #15 tab 02/26/22 [Rx] methylPREDNISolone Dose Pack [Medrol Dose Pack] 4 mg PO DIRECTED #21 tab 02/26/22 [Rx] Follow up Appointment(s)/Referral(s): Christen Shipley MD [STAFF PHYSICIAN] - 03/04/22 1:30 pm () Pancho Jimenez DO [Doctor of Osteopathic Medicine] - 03/05/22 9:00 am Patient Instructions/Handouts: How to Use an Incentive Spirometer (DC), Pericardial Effusion (DC), Bacterial Pneumonia (DC) Activity/Diet/Wound Care/Special Instructions: Antibiotics completed as per pulmonary. Discharge Disposition: HOME SELF-CARE
--- NOTE | 2022-02-26 15:18 | PN ---
PROGRESS NOTE Mrs Varela had an echo performed yesterday which revealed normal systolic function. No evidence of diastolic dysfunction and no pericardial effusion. Findings reviewed reassured. There is no cardiac etiology for her presentation. She probably has a pneumonia and concomitant pleural effusion and pleuritis and also had some vasovagal episode while in the hospital. I do not believe we are dealing with active cardiac problem. Discussed with the patient. Physical exam is unchanged. Vital signs are stable. I will see her as needed. MMODL / IJN: [id number] /
[2022-02-27] MEDS ORDERED: PANTOPRAZOLE 40 MG TABLET PO SCH (07:30)
== END 2022-02-26 14:11 | disposition home or self-care (01) | DRG 871 ==
LOC: EC 15:31 → 4SSUR 22:48
PROVIDERS: ADMIT Family Medicine; ATTEND Family Medicine
PROC: 0W9B3ZX Drainage of Left Pleural Cavity, Percutaneous Approach, Diagnostic (ICD-10-PCS; principal; 2022-02-23)
DX: A41.9 Sepsis, unspecified organism (principal); I50.31 Acute diastolic (congestive) heart failure; J18.9 Pneumonia, unspecified organism; I31.3 Pericardial effusion (noninflammatory); J98.11 Atelectasis; J90 Pleural effusion, not elsewhere classified; D18.03 Hemangioma of intra-abdominal structures; K76.89 Other specified diseases of liver; Z20.822 Contact with and (suspected) exposure to COVID-19; Z79.52 Long term (current) use of systemic steroids; Z79.899 Other long term (current) drug therapy; Z82.49 Family history of ischemic heart disease and other diseases of the circulatory system; Z28.21 Immunization not carried out because of patient refusal
CPT/HCPCS: 32555; 36415; 71045; 71046; 71275; 74177; 76705; 80048; 80053; 81003; 82150; 82164; 82550; 83605; 83615; 83690; 83735; 83880; 84145; 84155; 84157; 84484; 85025; 85610; 85652; 86038; 86140; 86200; 86225; 86235; 86255; 86431; 87040; 87070; 87205; 87449; 87502; 87635; 88108; 88305; 89050; 93005; 93306; 93308; 93880; 96361; 96365; 96366; 96375; 99285

== ENCOUNTER → 2022-09-02 | Outpatient (CLI) | payer BC ==
[2022-09-02 10:32] VITALS: BP 156/82; PULSE 81; RESP 16; TEMP 97.7
--- NOTE | 2022-09-02 12:12 | P.HPOB ---
History of Present Illness H&P Date: 09/02/22 Chief Complaint: The patient is here for her routine gynecologic exam and ma mmogram. This is a 62-year-old G0 with an LMP of 2013. The patient is here to establish with this office. It has been about 7 years since her last pelvic exam and her last mammogram. She has been experiencing vaginal dryness with sexual intercourse. She is otherwise without gynecologic complaints and denies any postmenopausal bleeding. Review of Systems She has lost about 10 pounds over the past 6 months. She attributes this to her pneumonia that she had in February 2022 and she was hospitalized for 9 days with this. She denies respiratory or GI problems. Cardiac: Occasional heart racing. Past Medical History Past Medical History: No Reported History, Pneumonia Additional Past Medical History / Comment(s): BACTERIAL PNEUMONIA MARCH 2022. 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 History of Any Multi-Drug Resistant Organisms: None Reported Past Surgical History: Tonsillectomy Past Anesthesia/Blood Transfusion Reactions: No Reported Reaction Past Psychological History: No Psychological Hx Reported Smoking Status: Never smoker Past Alcohol Use History: None Reported Past Drug Use History: None Reported Additional History: She has been since 1985 and is sexually active. 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 - Past Family History Mother Family Medical History: Cancer, Hypertension Additional Family Medical History / Comment(s): Cervical cancer. Maternal gra ndfather had pancreatic cancer. Maternal aunt had rectal cancer. Father Family Medical History: Hypertension, Myocardial Infarction ([place]) Sister(s) Additional Family Medical History / Comment(s): Endometriosis. Medications and Allergies Home Medications Medication Instructions Recorded Confirmed Type Acetaminophen/Diphenhydramine 1 tab PO HS PRN 02/18/22 09/02/22 History [Tylenol PM 500-25mg] Multivitamins, Thera [Multivitamin 1 tab PO DAILY 02/18/22 09/02/22 History (formulary)] Allergies Allergy/AdvReac Type Severity Reaction Status Date / Time No Known Allergies Allergy Verified 09/02/22 10:27 Exam Vital Signs Temp Pulse Resp BP Pulse Ox 09/02/22 10:28 97.7 F 81 16 156/82 100 Intake and Output 09/01/22 09/02/22 09/02/22 22:59 06:59 14:59 Other: Weight 56.699 kg Height 5 feet 4 inches, weight 125 pounds, BMI 21.5. This is a well-developed well-nourished white female who is alert and oriented times 3 in no acute distress. HEENT: Within normal limits. NECK: Supple without mass or thyromegaly. CHEST AND LUNGS: Clear to auscultation. HEART: Regular rate and rhythm. BREASTS: Are without mass or discharge. AXILLARY EXAM: Negative for adenopathy. BACK: Negative for CVA tenderness. ABDOMEN: Soft, without palpable masses. There is minimal left upper quadrant tenderness without rebound tenderness. She states she has had some left upper quadrant soreness since her pneumonia 6 months ago. PELVIC EXAM: Normal external genitalia with mild to moderate atrophy. Cervix and vagina appear normal with mild to moderate atrophy. There is no unusual discharge. There is no evidence of prolapse. The uterus is midposition, nongravid size and nontender. There are no palpable adnexal masses or tenderness. RECTAL EXAM: Rectovaginal exam is negative for mass or tenderness and is negative for occult blood. EXTREMITIES: Nontender. IMPRESSION: 1. 62-year-old menopausal female with normal gynecologic exam. 2. Dyspareunia secondary to vaginal dryness and genital atrophy. 3. Minimal left upper quadrant abdominal pain which she states may be related to the pneumonia that she had 6 months ago. 4. Elevated blood pressure. PLAN: 1. Pap smear cotest was performed. She has not been adequately screened during the past 7 years. If this Pap smear cotest is negative, we will repeated again in 4-5 years and if they are both negative, we'll consider discontinuing Pap smears at that time. 2. Self breast awareness was discussed with the patient. We have also discussed symptoms associated with inflammatory breast cancer. 3. Screening mammogram will be done today. 4. I have asked the patient to follow up with her primary care physician regarding the left upper quadrant discomfort if this persists. 5. We have discussed her elevated blood pressure. I recommended that she check her own blood pressures at home on a regular basis and follow up with her PCP for blood pressure elevations. She does have a blood pressure cuff at home. 6.Osteoporosis prevention was discussed. I have stressed the importance of adequate calcium, vitamin D and regular exercise. Recommended amounts of calcium and vitamin D were also discussed. I have recommended a bone density test since she has never had this done. The order slip was given to the patient for this. 7. We have discussed options for vaginal dryness with intercourse. We have discussed lubrication as well as vaginal estrogen. She is declining vaginal estrogen at this time and states she will use lubrication as needed. 8. I recommended screening colonoscopy since she has never had this done. She will discuss this with her PCP. 9. She has completed her Covid vaccination series and has received 1 booster. 10. The patient was advised to return in 1-2 years for her well woman examination.
== END ==
LOC: WWCWWP 10:17
PROVIDERS: ATTEND Obstetrics & Gynecology
DX: Z01.419 Encounter for gynecological examination (general) (routine) without abnormal findings (principal); Z12.31 Encounter for screening mammogram for malignant neoplasm of breast; R03.0 Elevated blood-pressure reading, without diagnosis of hypertension; N95.2 Postmenopausal atrophic vaginitis; R10.12 Left upper quadrant pain; Z80.0 Family history of malignant neoplasm of digestive organs; Z80.49 Family history of malignant neoplasm of other genital organs
CPT/HCPCS: 77063; 77067

== ENCOUNTER → 2025-03-08 | Outpatient (CLI) | payer MEDICARE ==
--- NOTE | 2025-03-08 08:22 | MM ---
Reason for Exam: Screening (asymptomatic). Last mammogram was performed 2 year(s) and 6 month(s) ago. Patient History: Menarche at age 11. Patient has no children. Postmenopausal. Risk Values: Maria M 5 year model risk: 1.9%. NCI Lifetime model risk: 6.7%. Prior Study Comparison: 08/28/2011 Bilateral Screening Mammogram, [facility]. 08/28/2015 Bilateral Screening Mammogram, [facility]. 09/02/2022 Bilateral MG 3D screening mammo w/cad, [facility]. Tissue Density: There are scattered areas of fibroglandular density. Findings: Analyzed By CAD. Right breast: There is no suspicious group of microcalcifications or new suspicious mass. Left breast: There is no suspicious group of microcalcifications or new suspicious mass. Overall Assessment: Negative, BI-RAD 1 Management: Screening Mammogram of both breasts in [address] [facility] will attempt to contact patient to return for supplemental views and ultrasound if indicated. Patient should continue monthly self-breast exams. A clinical breast exam by your physician is recommended on an annual basis. This exam should not preclude additional follow-up of suspicious palpable abnormalities. Note on Maria M scores and lifetime risk: 1. A Maria M score greater than 3% is considered moderate risk. If this is the case, consider specialist referral to assess eligibility for a risk reducing agent. 2. If overall lifetime risk for the development of breast cancer is 20% or higher, the patient may qualify for future screening with alternating mammogram and breast MRI. [facility], , 03/08/2025 8:19 AM. Electronically signed and approved by: Panfilo Ring DO
== END | disposition home or self-care (01) ==
LOC: RADMAMWWP 07:35
PROVIDERS: ATTEND Family Medicine
DX: Z12.31 Encounter for screening mammogram for malignant neoplasm of breast (principal); R92.323 Mammographic fibroglandular density, bilateral breasts; Z78.0 Asymptomatic menopausal state
CPT/HCPCS: 77063; 77067